=== PATIENT | female | born 1995 | race Caucasian/White ===

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

== ENCOUNTER 2017-07-16 10:02 | Emergency (ER) ==
[2017-07-16 10:14] VITALS: BP 145/80; TEMP 98.3; BMI 29.2
--- NOTE | 2017-07-16 10:31 | ED.PDOC ---
General ED Provider: Dr. SRAVANTHI CRUMP Chief Complaint: Abdominal Pain Stated Complaint: Pelvic and bilateral inguinal pain x 5 months. Eased off for past week but flared up again 3 days ago. 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 Has been worked up for each of 3 flare ups of pain (at [facility] and as OP), dx'd with PID (although repeated cultures were all negative ) and did not improve with treatment. Time Seen by Physician: 10:32 Mode of Arrival: Walk-In Information Source: Patient Exam Limitations: No limitations Primary Care Provider: KENNETH ALEGRIA Nursing and Triage Documentation Reviewed and Agree: Yes GI Complaint Exam - Abdominal Pain Complaint/Exam Onset: Gradual Duration: 5 months, worse x 3 days Symptoms Are: Still present Timing: Constant Initial Severity: Mild Current Severity: Moderate Location of Pain: RLQ, LLQ, Suprapubic Character: Reports: Aching, Throbbing, Cramping Aggravating: Reports: None Alleviating: Reports: None (never resolves but has eased off spontaneously, most recently 1 week ago.) [employer]ER History: Reports: PID (Dx'd with PID 3x in past 5 months, no response to tx and all cultures negative) : 1 Para: 1 Hx Total # of Abortions (Spontaneous & Elective): 0 Ectopic Risk Factors: Reports: None Ovarian Torsion Risk Factors: Reports: Reproductive age Surgical Obstruction Risk Factors: Reports: None Related Surgical History: Reports: None Patient Rh Status: Unknown Abdominal Findings: Present: None (suprapubic tenderness and bilateral inguinal tenderness. More tender on left than right.) Differential Diagnoses: Appendicitis, Gastroenteritis, Ovarian Cyst, PID Review of Systems - Review Of Systems Constitutional: Reports: No symptoms Respiratory: Reports: No symptoms Cardiac: Reports: No symptoms GI: Reports: Abdominal pain : Reports: Pain Musculoskeletal: Reports: No symptoms Skin: Reports: No symptoms Neurological: Reports: No symptoms All Other Systems: Reviewed and Negative Past Medical History - Past Medical History Previously Healthy: Yes Endocrine: Reports: None Cardiovascular: Reports: None Respiratory: Reports: None Hematological: Reports: None Gastrointestinal: Reports: None Genitourinary: Reports: Other (PMH of multiple positive urinalyses with negative cultures and negative urinalyses from cath'd urines.) Neuro/Psych: Reports: None Musculoskeletal: Reports: Back Pain Cancer: Reports: None Last Menstrual Period: this AM Other Pertinent Past Medical History: DRUG PROBLEMS IN THE PAST - Surgical History General Surgical History: Reports: None - Family History Family History: Reports: None - Social History Smoking Status: Current every day smoker, Heavy tobacco smoker Hx Substance Use: No Alcohol Screening: None Lives: With family - Immunizations Tetanus Shot up to Date: Yes Influenza Vaccine within 12 Months: No Pneumococcal Vaccine up to Date: No Physical Exam - Physical Exam Appearance: Well-appearing, Well-nourished Ill-appearing: None Pain Distress: Moderate Respiratory: Airway patent, Breath sounds clear, Breath sounds equal, Respirations nonlabored Cardiovascular: RRR, Pulses normal, No rub, No murmur GI/: Soft, No masses, Bowel sounds normal, No Organomegaly, Tender ( suprapubic and bilateral inguinal tenderness (R>L). Pelvic, bimanual exam: extremely tender to light touch of entire vagina, positive chandelier's sign. Speculum exam: cervix is friable plus bleeding from os. Routine culture obtained. Pt refused GC/chlamydia tests.) Musculoskeletal: Normal strength, ROM intact, No edema, No calf tenderness Skin: Warm, Dry, Normal color Neurological: Sensation intact, Motor intact, Reflexes intact, Cranial nerves intact, Alert, Oriented Psychiatric: Affect appropriate, Mood appropriate Critical Care Note - Critical Care Note Total Time (mins): 0 Course - Course Hematology/Chemistry: 07/16/17 10:42 07/16/17 10:42 Orders, Labs, Meds: Lab Review 07/16/17 07/16/17 07/16/17 10:42 10:42 10:42 WBC 6.46 RBC 5.43 H Hgb 11.9 L Hct 38.5 MCV 70.9 L MCH 21.9 L MCHC 30.9 L RDW Coeff of Angel 15.9 H Plt Count 336 Immature Gran % (Auto) 0.3 Neut % (Auto) 66.4 Lymph % (Auto) 21.7 [place] % (Auto) 8.4 Eos % (Auto) 2.6 Baso % (Auto) 0.6 Immature Gran # (Auto) 0.0 Neut # 4.3 Lymph # 1.4 [place] # 0.5 Eos # 0.2 Baso # 0.0 Sodium 138 Potassium 4.0 Chloride 107 Carbon Dioxide 26 Anion Gap 9.0 BUN 8 Creatinine 0.61 Estimated GFR (MDRD) 126.00 BUN/Creatinine Ratio 13.11 Glucose 92 Lactic Acid 6.1 Calcium 8.9 Total Bilirubin 0.46 L AST 13 ALT 13 Alkaline Phosphatase 71 Total Protein 7.0 Albumin 3.5 L Globulin 3.5 Albumin/Globulin Ratio 1.00 Amylase 51 Lipase 23 Urine Color Urine Clarity Urine pH Ur Specific [place] Urine Protein Urine Glucose (UA) Urine Ketones Urine Blood Urine Nitrite Urine Bilirubin Urine Urobilinogen Ur Leukocyte Esterase Urine Microscopic RBC Urine Microscopic WBC Ur Squamous Epith Cells Urine Bacteria Urine Test 07/16/17 07/16/17 11:40 11:40 WBC RBC Hgb Hct MCV MCH MCHC RDW Coeff of Angel Plt Count Immature Gran % (Auto) Neut % (Auto) Lymph % (Auto) [place] % (Auto) Eos % (Auto) Baso % (Auto) Immature Gran # (Auto) Neut # Lymph # [place] # Eos # Baso # Sodium Potassium Chloride Carbon Dioxide Anion Gap BUN Creatinine Estimated GFR (MDRD) BUN/Creatinine Ratio Glucose Lactic Acid Calcium Total Bilirubin AST ALT Alkaline Phosphatase Total Protein Albumin Globulin Albumin/Globulin Ratio Amylase Lipase Urine Color Red Urine Clarity Cloudy Urine pH 7.0 Ur Specific [place] 1.020 Urine Protein 2+ Urine Glucose (UA) Negative Urine Ketones Negative Urine Blood 3+ Urine Nitrite Negative Urine Bilirubin Negative Urine Urobilinogen 0.2 Ur Leukocyte Esterase 1+ Urine Microscopic RBC Tntc Urine Microscopic WBC Tntc Ur Squamous Epith Cells 5-10 Urine Bacteria 2+ Urine Test Negative Orders Category Date Time Status AMYLASE Stat LAB 07/16/17 10:42 Completed CBC W/ AUTO DIFF Stat LAB 07/16/17 10:42 Completed COMPREHENSIVE METABOLIC PANEL Stat LAB 07/16/17 10:42 Completed LACTIC ACID Stat LAB 07/16/17 10:42 Completed LIPASE Stat LAB 07/16/17 10:42 Completed TEST URINE [URINE ] Stat LAB 07/16/17 11:40 Completed URINALYSIS C & S IF INDICATED Stat LAB 07/16/17 11:40 Completed URINE CULTURE Routine LAB 07/16/17 12:02 Received Ketorolac Tromethamine [Toradol] MEDS 07/16/17 12:14 Discontinued 60 mg IM ONCE STA Medications Discontinued Medications Generic Name Dose Route Start Last Admin Trade Name Freq PRN Reason Stop Dose Admin Ketorolac Tromethamine 60 mg 07/16/17 12:14 Toradol IM 07/16/17 12:15 ONCE STA Vital Signs: Temp Pulse Resp BP Pulse Ox 07/16/17 10:04 98.3 F 96 H 20 145/80 H 100 Departure - Departure Time of Disposition: 12:59 Disposition: HOME SELF-CARE Discharge Problem: Pelvic inflammatory disease, acute, Pyuria Discharge Problem: (Ruled Out): Urinary tract infection Condition: Good Pt referred to PMD for follow-up: Yes (unless all symptoms resolve in next 3 days) Allergies/Adverse Reactions: Allergies codeine Adverse Reaction (Verified 07/16/17 10:14) Vomiting hydrocodone [From Lortab] Adverse Reaction (Verified 07/16/17 10:14) tramadol Adverse Reaction (Verified 07/16/17 10:14) Home Medications: Ambulatory Orders Lorazepam [Ativan] 0.5 mg PO BID 11/15/16 Doxycycline Hyclate 100 mg PO BID #20 capsule 07/16/17 Metronidazole [Flagyl] 250 mg PO TID #30 tablet 07/16/17 Ondansetron [Zofran Odt] 4 mg SL Q6HR PRN 07/16/17 Oxycodone-Acetaminophen 5-325 [Percocet 5-325] 1 tab PO Q4H #10 tablet 07/16/17 Disposition Discussed With: Patient
[2017-07-16 11:00] LABS: BASOPHILS % (AUTO) 0.6 % (0.0-3.0); EOSINOPHILS # (AUTO) 0.2 K/ul (0.0-0.7); EOSINOPHILS % (AUTO) 2.6 % (0.0-7.0); HEMATOCRIT 38.5 % (37.0-47.0); HEMOGLOBIN 11.9 g/dl (12.0-16.0); IMMATURE GRANULOCYTE % (AUTO) 0.3 % (0.0-5.0); LYMPHOCYTES # (AUTO) 1.4 K/uL (0.60-3.4); LYMPHOCYTES % (AUTO) 21.7 (10.0-50.0); MEAN CORPUSCULAR HEMOGLOBIN 21.9 pg (27.0-31.0); MEAN CORPUSCULAR HGB CONC 30.9 (31.8-35.4); MEAN CORPUSCULAR VOLUME 70.9 fl (81.0-99.0); MONOCYTES # (AUTO) 0.5 K/uL (0.4-2.0); MONOCYTES % (AUTO) 8.4 (0-10); NEUTROPHILS # (AUTO) 4.3 K/ul (2.0-6.9); NEUTROPHILS % (AUTO) 66.4; PLATELET COUNT 336 10^3/uL (140-440); RED BLOOD COUNT 5.43 10^6/ul (4.20-5.40); WHITE BLOOD COUNT 6.46 K/ul (4.6-10.2)
[2017-07-16 11:19] LABS: ALBUMIN 3.5 g/dL (3.7-5.6); BILIRUBIN,TOTAL 0.46 mg/dL (0.60-1.40); BUN/CREATININE RATIO 13.11; CALCIUM 8.9 mg/dL (8.2-10.2); CREATININE 0.61 mg/dL (0.60-1.30)
[2017-07-16 11:50] LABS: BILIRUBIN,URINE Negative (NEGATIVE); KETONES,URINE Negative (NEGATIVE); LEUKOCYTE ESTERASE ,URINE 1+ (NEGATIVE); NITRITE,URINE Negative (NEGATIVE); PROTEIN,URINE 2+ (NEGATIVE); URINE, BLOOD 3+ (NEGATIVE)
[2017-07-16 11:55] LABS: ADD URINE MICROSCOPIC YES
[2017-07-16 11:56] LABS: URINE PREGNANCY INTERNAL QC INTERNAL QC VALID
[2017-07-16 12:00] LABS: BACTERIA,URINE 2+ (NOT PRESENT)
[2017-07-16] MEDS ORDERED: TORADOL IM STA (12:14)
[2017-07-16] MEDS ORDERED: LIDOCAINE HCL 1% SDV SUBCUT STA (12:48)
[2017-07-16] MEDS ORDERED: ROCEPHIN IM STA (12:48)
[2017-07-20 19:10] LABS: GENITAL CULT RESULT 1 Yeast isolated. (.); GENITAL CULTURE Final report (.)
== END 2017-07-16 13:24 | disposition home or self-care (01) ==
LOC: ED 10:02
DX: N73.0 Acute parametritis and pelvic cellulitis (principal); N39.0 Urinary tract infection, site not specified; F17.210 Nicotine dependence, cigarettes, uncomplicated
CPT/HCPCS: 36415; 80053; 81001; 81025; 82150; 83605; 83690; 85025; 87070; 87086; 96372; 99282

== ENCOUNTER 2017-08-09 20:08 | Emergency (ER) ==
[2017-08-09 20:15] VITALS: BP 153/98; TEMP 98.5; BMI 28.3
--- NOTE | 2017-08-09 20:23 | ED.PDOC ---
General ED Provider: Dr. CHARISSE ALMANZA Chief Complaint: Abdominal Pain Stated Complaint: Patient states that she has a history of PID off and on and is at risk for Ectopic . States she has not had her period for two months and is spottiing. 4 hours ago she started having left lower quadrant pain and tenderness. She was worried of possible ectopic . Time Seen by Physician: 20:23 Mode of Arrival: Walk-In Information Source: Patient Exam Limitations: No limitations Primary Care Provider: KENNETH ALEGRIA Nursing and Triage Documentation Reviewed and Agree: Yes Complaint Exam - Complaint/Exam Patient Complains of: Reports: Vaginal discharge (spotting) Onset/Duration: two days Symptoms Are: Still present Timing: Constant Initial Severity: Moderate Current Severity: Moderate Location of Pain: Reports: Left Character: Reports: Constant pressure, Dull, Cramping Aggravating: Reports: Movement, Urination Associated Signs and Symptoms: Reports: Nausea, Vomiting, Abdominal Pain, Vaginal bleeding. Denies: Diaphoresis, Back pain, Fever, Hematuria, Dysuria, Constipation, Blood in stool, Rectal pain, Appetite change, Decreased urine output, Increased urine frequency, Increased thirst, Decreased activity, Lethargy, Bubble bath use, Vaginal discharge, Genital swelling, Genital blisters , Retained foreign body Related History: Reports: Similar episode, Prior STD Hx : 1 Para: 1 Ectopic Risk Factors: Reports: Hx of Salpingitis Ovarian Torsion Risk Factors: Reports: Ovarian cysts Surgical Obstruction Risk Factors: Reports: None RH Status: Unknown Related Surgical History: Reports: None Abdominal Findings: Absent: Rebound tenderness, Peritoneal signs, McBurney's Point tender, CVA Tenderness, Hernia, Inguinal swelling Differential Diagnoses: Ovarian Cyst, Ovarian Torsion, , Ectopic , Renal Colic, Ureteral Stone, UTI Review of Systems - Review Of Systems Constitutional: Reports: No symptoms Eyes: Reports: No symptoms Ears, Nose, Mouth, Throat: Reports: No symptoms Respiratory: Reports: No symptoms Cardiac: Reports: No symptoms GI: Reports: Abdominal pain, Nausea, Poor appetite, Vomiting : Reports: Dysuria, Other (spotting) Musculoskeletal: Reports: No symptoms Skin: Reports: No symptoms Neurological: Reports: No symptoms Endocrine: Reports: No symptoms Hematologic/Lymphatic: Reports: No symptoms All Other Systems: Reviewed and Negative Past Medical History - Past Medical History Previously Healthy: Yes Endocrine: Reports: None Cardiovascular: Reports: None Respiratory: Reports: None Hematological: Reports: None Gastrointestinal: Reports: None Genitourinary: Reports: Other (PMH of multiple positive urinalyses with negative cultures and negative urinalyses from cath'd urines.) Neuro/Psych: Reports: None Musculoskeletal: Reports: Back Pain Cancer: Reports: None Last Menstrual Period: UNKNOWN Other Pertinent Past Medical History: DRUG PROBLEMS IN THE PAST, PID - Surgical History General Surgical History: Reports: None - Family History Family History: Reports: None - Social History Smoking Status: Current every day smoker, Heavy tobacco smoker Hx Substance Use: No Alcohol Screening: None - Immunizations Tetanus Shot up to Date: No Influenza Vaccine within 12 Months: No Pneumococcal Vaccine up to Date: No Physical Exam - Physical Exam Appearance: Ill-appearing Ill-appearing: Mild Eyes: JOELLE, EOMI, Conjunctiva clear ENT: Ears normal, Nose normal, Oropharynx normal Respiratory: Airway patent, Breath sounds clear, Breath sounds equal, Respirations nonlabored Cardiovascular: RRR, Pulses normal, No rub, No murmur GI/: Soft, Tender Musculoskeletal: Normal strength, ROM intact, No edema, No calf tenderness Skin: Warm, Dry, Normal color Neurological: Sensation intact, Motor intact, Alert, Oriented Psychiatric: Anxious Interpretation - Radiology Interpretation Radiology Interpretation By: Radiologist Radiology Results: Negative Exam Interpreted: CT Scan (Abdomen and Pelvis ) Critical Care Note - Critical Care Note Total Time (mins): 0 Course - Course Hematology/Chemistry: 08/09/17 20:27 08/09/17 20:27 Orders, Labs, Meds: Lab Review 08/09/17 08/09/17 08/09/17 20:27 20:27 20:27 WBC 7.18 RBC 5.00 Hgb 11.2 L Hct 36.1 L MCV 72.2 L MCH 22.4 L MCHC 31.0 L RDW Coeff of Angel 16.6 H Plt Count 340 Immature Gran % (Auto) 0.1 Neut % (Auto) 55.9 Lymph % (Auto) 30.9 [place] % (Auto) 9.7 Eos % (Auto) 2.8 Baso % (Auto) 0.6 Immature Gran # (Auto) 0.0 Neut # 4.0 Lymph # 2.2 [place] # 0.7 Eos # 0.2 Baso # 0.0 Sodium 139 Potassium 4.4 Chloride 108 H Carbon Dioxide 23 Anion Gap 12.4 BUN 7 Creatinine 0.87 Estimated GFR (MDRD) 83.00 BUN/Creatinine Ratio 8.04 Glucose 93 Calcium 9.1 Total Bilirubin 0.18 AST 17 ALT 13 Alkaline Phosphatase 77 Total Protein 7.4 Albumin 3.6 Globulin 3.8 Albumin/Globulin Ratio 0.95 Serum , Qual Negative Urine Color Urine Clarity Urine pH Ur Specific [place] Urine Protein Urine Glucose (UA) Urine Ketones Urine Blood Urine Nitrite Urine Bilirubin Urine Urobilinogen Ur Leukocyte Esterase Urine Microscopic WBC Ur Squamous Epith Cells Urine Bacteria 08/09/17 20:36 WBC RBC Hgb Hct MCV MCH MCHC RDW Coeff of Angel Plt Count Immature Gran % (Auto) Neut % (Auto) Lymph % (Auto) [place] % (Auto) Eos % (Auto) Baso % (Auto) Immature Gran # (Auto) Neut # Lymph # [place] # Eos # Baso # Sodium Potassium Chloride Carbon Dioxide Anion Gap BUN Creatinine Estimated GFR (MDRD) BUN/Creatinine Ratio Glucose Calcium Total Bilirubin AST ALT Alkaline Phosphatase Total Protein Albumin Globulin Albumin/Globulin Ratio Serum , Qual Urine Color Yellow Urine Clarity Clear Urine pH 7.5 Ur Specific [place] 1.020 Urine Protein Trace Urine Glucose (UA) Negative Urine Ketones Negative Urine Blood Negative Urine Nitrite Negative Urine Bilirubin Negative Urine Urobilinogen 1.0 Ur Leukocyte Esterase Negative Urine Microscopic WBC 0-2 Ur Squamous Epith Cells 0-2 Urine Bacteria Trace Orders Category Date Time Status CBC W/ AUTO DIFF Stat LAB 08/09/17 20:27 Completed COMPREHENSIVE METABOLIC PANEL Stat LAB 08/09/17 20:27 Completed SERUM Stat LAB 08/09/17 20:27 Completed URINALYSIS C & S IF INDICATED Stat LAB 08/09/17 20:36 Completed Dicyclomine HCl [Bentyl] MEDS 08/09/17 21:40 Discontinued 20 mg PO ONCE STA Fluconazole [Diflucan] MEDS 08/09/17 21:40 Discontinued 150 mg PO ONCE STA Fluconazole [Diflucan] MEDS 08/09/17 21:46 Discontinued 200 mg .ROUTE .STK-MED ONE CT ABD/PEL WO RENAL STONE PROT Stat RADS 08/09/17 20:53 Completed Medications Discontinued Medications Generic Name Dose Route Start Last Admin Trade Name Freq PRN Reason Stop Dose Admin Dicyclomine HCl 20 mg 08/09/17 21:40 08/09/17 21:48 Bentyl PO 08/09/17 21:41 20 mg ONCE STA Administration Fluconazole 150 mg 08/09/17 21:40 08/09/17 21:50 Diflucan PO 08/09/17 21:41 Not Given ONCE STA Vital Signs: Temp Pulse Resp BP Pulse Ox 08/09/17 20:09 98.5 F 87 18 153/98 H 99 Departure - Departure Time of Disposition: 21:56 Disposition: HOME SELF-CARE Discharge Problem: Abdominal pain Instructions: Abdominal Pain (ED) Condition: Stable Pt referred to PMD for follow-up: Yes Additional Instructions: Push fluids Continue home medications Follow up with PCP in 3 days Take medications as prescribed for cramping. Prescriptions: Dicyclomine HCl [Bentyl] 10 mg PO TID PRN #14 capsule PRN Reason: Abdominal Pain Allergies/Adverse Reactions: Allergies codeine Adverse Reaction (Verified 08/09/17 20:15) Vomiting hydrocodone [From Lortab] Adverse Reaction (Verified 08/09/17 20:15) tramadol Adverse Reaction (Verified 08/09/17 20:15) Home Medications: Ambulatory Orders Lorazepam [Ativan] 0.5 mg PO BID PRN 11/15/16 Dicyclomine HCl [Bentyl] 10 mg PO TID PRN #14 capsule 08/09/17 Disposition Discussed With: Patient
[2017-08-09 20:30] LABS: BASOPHILS % (AUTO) 0.6 % (0.0-3.0); EOSINOPHILS # (AUTO) 0.2 K/ul (0.0-0.7); EOSINOPHILS % (AUTO) 2.8 % (0.0-7.0); HEMATOCRIT 36.1 % (37.0-47.0); HEMOGLOBIN 11.2 g/dl (12.0-16.0); IMMATURE GRANULOCYTE % (AUTO) 0.1 % (0.0-5.0); LYMPHOCYTES # (AUTO) 2.2 K/uL (0.60-3.4); LYMPHOCYTES % (AUTO) 30.9 (10.0-50.0); MEAN CORPUSCULAR HEMOGLOBIN 22.4 pg (27.0-31.0); MEAN CORPUSCULAR VOLUME 72.2 fl (81.0-99.0); MONOCYTES # (AUTO) 0.7 K/uL (0.4-2.0); MONOCYTES % (AUTO) 9.7 (0-10); NEUTROPHILS % (AUTO) 55.9; PLATELET COUNT 340 10^3/uL (140-440); WHITE BLOOD COUNT 7.18 K/ul (4.6-10.2)
[2017-08-09 20:42] LABS: BILIRUBIN,URINE Negative (NEGATIVE); KETONES,URINE Negative (NEGATIVE); LEUKOCYTE ESTERASE ,URINE Negative (NEGATIVE); NITRITE,URINE Negative (NEGATIVE); PH,URINE 7.5 (5-9); PROTEIN,URINE Trace (NEGATIVE); URINE, BLOOD Negative (NEGATIVE)
[2017-08-09 20:46] LABS: ADD URINE MICROSCOPIC YES; BACTERIA,URINE TRACE (NOT PRESENT)
[2017-08-09 20:46] LABS: SERUM PREGNANCY INTERNAL QC INTERNAL QC VALID
[2017-08-09 20:48] LABS: ALBUMIN 3.6 g/dL (3.4-5.0); ALBUMIN/GLOBULIN RATIO 0.95; ANION GAP 12.4; BILIRUBIN,TOTAL 0.18 mg/dL (0.00-1.20); BUN/CREATININE RATIO 8.04; CALCIUM 9.1 mg/dL (8.2-10.2); CREATININE 0.87 mg/dL (0.60-1.30); POTASSIUM 4.4 mmol/L (3.5-5.10); TOTAL PROTEIN 7.4 g/dL (6.4-8.2)
--- NOTE | 2017-08-09 21:29 | CT ---
EXAM: CT of the abdomen and pelvis without contrast. HISTORY: Left lower quadrant pain. PROCEDURE: Contiguous axial CT images of the abdomen and pelvis without contrast with coronal and sa gittal reformats. FINDINGS: The liver, gallbladder, pancreas, spleen, adrenal glands and kidneys are normal in appearan ce. No nephrolithiasis or hydronephrosis. The ureters are incompletely visualized. The abdominal a gabriella is normal in appearance. The visualized loops of bowel and appendix are normal in appearance. N o free fluid or free air in the abdomen or pelvis. The bladder is minimally filled with no abnormalit y identified. Uterus is retroflexed. The bones and soft tissues are unremarkable. Impression: Negative CT of the abdomen and pelvis as described.
[2017-08-09] MEDS ORDERED: DIFLUCAN PO STA (21:40)
[2017-08-09] MEDS ORDERED: BENTYL PO STA (21:40)
[2017-08-09] MEDS ORDERED: DIFLUCAN ONE (21:46)
== END 2017-08-09 22:00 | disposition home or self-care (01) ==
LOC: ED 20:08
DX: R10.32 Left lower quadrant pain (principal); R11.2 Nausea with vomiting, unspecified; R30.0 Dysuria; F17.210 Nicotine dependence, cigarettes, uncomplicated
CPT/HCPCS: 36415; 74176; 80053; 81001; 84703; 85025; 99283

== ENCOUNTER 2017-08-24 19:58 | Emergency (ER) ==
[2017-08-24 20:06] VITALS: BP 145/83; TEMP 97.9
--- NOTE | 2017-08-24 20:18 | ED.PDOC ---
General ED Provider: Dr. BLANCA MARTE Chief Complaint: Psychiatric Complaint Stated Complaint: Patient been confused since noon, seen PMD today,. anxious, crying. not suicidal, patient step mom with her. Time Seen by Physician: 20:16 Mode of Arrival: Walk-In Information Source: Patient Primary Care Provider: KENNETH ALEGRIA Nursing and Triage Documentation Reviewed and Agree: Yes Psychological Complaint Exam - Psychiatric Complaint/Exam Patient Complains Of: Present: Other (anxious.) Symptoms Are: Still present Timing: Intermittent Episodes Lasting: Hours Initial Severity: Moderate Current Severity: Moderate Character: Present: Fearful, Anxious, Frustrated Aggravating: Reports: Recent stress Associated Signs And Symptoms: Reports: Confused. Denies: Hostile, Hallucinating, Paranoid behavior, Sleep disturbance, Appetite change Related History: Reports: Recent stressors Completed Suicide Risk Factors: None Patient Accompanied By: Family (step mom) Patient In Custody Of Police: No Social Withdrawal Present: No Social Isolation Present: No Prior Suicide Attempt: No Injury From Prior Suicide Attempt: No Related Surgical History: Reports: None Patient Uncooperative For Exam: No Mood: Present: Anxious Appearance: Present: Clean Thought Process: Present: Logical Insight: Present: Good Memory: Intact Judgement: Normal Danger To Others: No Differential Diagnoses: Anxiety, Acute Psychosis, Other Review of Systems - Review Of Systems Constitutional: Reports: No symptoms Eyes: Reports: No symptoms Ears, Nose, Mouth, Throat: Reports: No symptoms Respiratory: Reports: No symptoms Cardiac: Reports: No symptoms GI: Reports: No symptoms : Reports: No symptoms Musculoskeletal: Reports: No symptoms Skin: Reports: No symptoms Neurological: Reports: Anxiety, Emotional problems Endocrine: Reports: No symptoms Hematologic/Lymphatic: Reports: No symptoms All Other Systems: Reviewed and Negative Past Medical History - Past Medical History Previously Healthy: Yes Endocrine: Reports: None Cardiovascular: Reports: None Respiratory: Reports: None Hematological: Reports: None Gastrointestinal: Reports: None Genitourinary: Reports: Other (PMH of multiple positive urinalyses with negative cultures and negative urinalyses from cath'd urines.) Neuro/Psych: Reports: None Musculoskeletal: Reports: Back Pain Cancer: Reports: None Last Menstrual Period: unknown Other Pertinent Past Medical History: DRUG PROBLEMS IN THE PAST, PID - Surgical History General Surgical History: Reports: None - Family History Family History: Reports: None - Social History Smoking Status: Current every day smoker, Heavy tobacco smoker Smoking Cessation Counseling Time: > 10 min Hx Substance Use: No Alcohol Screening: None - Immunizations Influenza Vaccine within 12 Months: No Pneumococcal Vaccine up to Date: No Physical Exam - Physical Exam Appearance: Ill-appearing, Obese Eyes: JOELLE, EOMI, Conjunctiva clear ENT: Ears normal, Nose normal, Oropharynx normal Respiratory: Airway patent, Breath sounds clear, Breath sounds equal, Respirations nonlabored Cardiovascular: RRR, Pulses normal, No rub, No murmur GI/: Soft, Nontender, No masses, Bowel sounds normal, No Organomegaly Musculoskeletal: Normal strength, ROM intact, No edema, No calf tenderness Skin: Warm, Dry, Normal color Neurological: Sensation intact, Motor intact, Reflexes intact, Cranial nerves intact, Alert, Oriented Psychiatric: Affect appropriate, Mood appropriate Critical Care Note - Critical Care Note Total Time (mins): 0 Course - Course Orders, Labs, Meds: Orders Category Date Time Status CBC W/ AUTO DIFF Stat LAB 08/24/17 20:15 Ordered COMPREHENSIVE METABOLIC PANEL Stat LAB 08/24/17 20:15 Ordered DRUG SCREEN, URINE, RAPID Stat LAB 08/24/17 20:15 Uncollected URINALYSIS C & S IF INDICATED Stat LAB 08/24/17 20:[address] HEAD W/O CONTRAST Stat RADS 08/24/17 20:15 Ordered Vital Signs: Temp Pulse Resp BP Pulse Ox 08/24/17 19:59 97.9 F 82 20 145/83 H 99 Departure - Departure Time of Disposition: 20:22 Disposition: HOME SELF-CARE Discharge Problem: Anxiety Instructions: Anxiety (ED) Condition: Good Pt referred to PMD for follow-up: Yes Additional Instructions: keep f/u with PMD Allergies/Adverse Reactions: Allergies codeine Adverse Reaction (Verified 08/24/17 20:07) Vomiting hydrocodone [From Lortab] Adverse Reaction (Verified 08/24/17 20:07) tramadol Adverse Reaction (Verified 08/24/17 20:07) Home Medications: Ambulatory Orders Lorazepam [Ativan] 0.5 mg PO BID PRN 11/15/16 Disposition Discussed With: Patient
[2017-08-24 20:41] LABS: BASOPHILS # (AUTO) 0.1 K/uL (0-0.2); BASOPHILS % (AUTO) 0.8 % (0.0-3.0); EOSINOPHILS # (AUTO) 0.2 K/ul (0.0-0.7); EOSINOPHILS % (AUTO) 2.2 % (0.0-7.0); HEMATOCRIT 38.7 % (37.0-47.0); HEMOGLOBIN 12.1 g/dl (12.0-16.0); IMMATURE GRANULOCYTE % (AUTO) 0.2 % (0.0-5.0); LYMPHOCYTES # (AUTO) 2.4 K/uL (0.60-3.4); LYMPHOCYTES % (AUTO) 26.8 (10.0-50.0); MEAN CORPUSCULAR HEMOGLOBIN 22.5 pg (27.0-31.0); MEAN CORPUSCULAR HGB CONC 31.3 (31.8-35.4); MEAN CORPUSCULAR VOLUME 72.1 fl (81.0-99.0); MONOCYTES # (AUTO) 0.9 K/uL (0.4-2.0); MONOCYTES % (AUTO) 10.7 (0-10); NEUTROPHILS # (AUTO) 5.2 K/ul (2.0-6.9); NEUTROPHILS % (AUTO) 59.3; PLATELET COUNT 373 10^3/uL (140-440); RED BLOOD COUNT 5.37 10^6/ul (4.20-5.40)
[2017-08-24 20:51] LABS: ACETAMINOPHEN < 3 ug/ml (10-30); SALICYLATE < 5.0 mg/dL (2.8-20.0)
--- NOTE | 2017-08-24 20:51 | CT ---
EXAM: CT scan brain without contrast HISTORY: Confusion COMPARISON: None. FINDINGS: Contiguous axial images were obtained from the skull base to the convexities without contr ast utilizing 5-mm collimation. Sagittal and coronal reconstructions were imaged and reviewed. The v entricles and CSF spaces are within normal limits. No acute intracranial findings. The visualized p aranasal sinuses and mastoid air cells are clear. The calvarium is intact. IMPRESSION: No acute intracranial findings
[2017-08-24 20:53] LABS: ALBUMIN 3.7 g/dL (3.4-5.0); ALBUMIN/GLOBULIN RATIO 0.95; ANION GAP 12.1; BILIRUBIN,TOTAL 0.25 mg/dL (0.00-1.20); BUN/CREATININE RATIO 21.91; CALCIUM 9.4 mg/dL (8.2-10.2); CREATININE 0.73 mg/dL (0.60-1.30); POTASSIUM 4.1 mmol/L (3.5-5.10); TOTAL PROTEIN 7.6 g/dL (6.4-8.2)
[2017-08-24 21:05] LABS: BILIRUBIN,URINE Negative (NEGATIVE); KETONES,URINE Negative (NEGATIVE); LEUKOCYTE ESTERASE ,URINE 2+ (NEGATIVE); NITRITE,URINE Negative (NEGATIVE); PROTEIN,URINE Negative (NEGATIVE); URINE, BLOOD Negative (NEGATIVE)
[2017-08-24 21:16] LABS: ADD URINE MICROSCOPIC YES
[2017-08-24 21:17] LABS: BACTERIA,URINE TRACE (NOT PRESENT)
[2017-08-24 21:18] LABS: COCAIN SCREEN,URINE NEGATIVE (NEGATIVE)
== END 2017-08-24 22:17 | disposition home or self-care (01) ==
LOC: ED 19:58
DX: F41.9 Anxiety disorder, unspecified (principal); F17.210 Nicotine dependence, cigarettes, uncomplicated
CPT/HCPCS: 36415; 80053; 80306; 80307; 81001; 85025; 87086; 99283

== ENCOUNTER 2017-08-30 14:28 | Emergency (ER) ==
[2017-08-30 14:36] VITALS: BP 118/81; TEMP 97.8; BMI 29.2
[2017-08-30] MEDS ORDERED: PHENERGAN 25 MG/ML VIAL IM STA (15:00)
--- NOTE | 2017-08-30 15:00 | ED.PDOC ---
General ED Provider: Dr. SAMANTA ROBERTS JR Chief Complaint: Stated Complaint: 4 weeksEGA. 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 today with child[End ]states last emesis contained blood 97.8 69 20 98% 118/81 Time Seen by Physician: 15:00 Mode of Arrival: Walk-In Information Source: Patient Exam Limitations: No limitations Primary Care Provider: KENNETH ALEGRIA Nursing and Triage Documentation Reviewed and Agree: No Review of Systems - Review Of Systems Constitutional: Reports: Malaise Eyes: Reports: No symptoms Ears, Nose, Mouth, Throat: Reports: No symptoms Respiratory: Reports: No symptoms Cardiac: Reports: No symptoms GI: Reports: Nausea, Vomiting : Reports: Discharge Musculoskeletal: Reports: No symptoms Skin: Reports: No symptoms Neurological: Reports: No symptoms, Other Endocrine: Reports: No symptoms Hematologic/Lymphatic: Reports: No symptoms All Other Systems: Other Past Medical History - Past Medical History Previously Healthy: Yes Endocrine: Reports: None Cardiovascular: Reports: None Respiratory: Reports: None Hematological: Reports: None Gastrointestinal: Reports: None Genitourinary: Reports: Unknown (chronic cervicitis states negative cultures no benefit antibiotics), Other (PMH of multiple positive urinalyses with negative cultures and negative urinalyses from cath'd urines.) Neuro/Psych: Reports: None, Bipolar Disorder, PTSD, Other (AFFECTIVE ADD MANIC DEPRESSION) Musculoskeletal: Reports: Back Pain Cancer: Reports: None Last Menstrual Period: unknown Other Pertinent Past Medical History: DRUG PROBLEMS IN THE PAST, PID - Surgical History General Surgical History: Reports: Other (vag surgery for hematoma 30 min after delivery, 10/03/16) - Family History Family History: Reports: None - Social History Smoking Status: Former smoker, Heavy tobacco smoker Hx Substance Use: No Alcohol Screening: None - Immunizations Influenza Vaccine within 12 Months: No Pneumococcal Vaccine up to Date: No Physical Exam - Physical Exam Appearance: Well-appearing Pain Distress: Mild Eyes: JOELLE, EOMI, Conjunctiva clear ENT: Ears normal, Nose normal, Oropharynx normal Neck: Supple Respiratory: Airway patent, Breath sounds clear, Breath sounds equal, Respirations nonlabored, Rhonchi Cardiovascular: RRR, Pulses normal, No rub, No murmur GI/: Soft, Nontender, No masses, Bowel sounds normal, No Organomegaly Musculoskeletal: Normal strength, ROM intact, No edema, No calf tenderness Skin: Warm, Dry, Normal color Neurological: Sensation intact, Motor intact, Reflexes intact, Cranial nerves intact, Alert, Oriented Psychiatric: Affect appropriate, Mood appropriate Critical Care Note - Critical Care Note Total Time (mins): 0 Course - Course Orders, Labs, Meds: Orders Category Date Time Status Promethazine HCl [Phenergan 25 mg/ml Vial] MEDS 08/30/17 15:00 Discontinued 25 mg IM ONCE STA Medications Discontinued Medications Generic Name Dose Route Start Last Admin Trade Name Freq PRN Reason Stop Dose Admin Promethazine HCl 25 mg 08/30/17 15:00 08/30/17 15:24 Phenergan 25 Mg/Ml Vial IM 08/30/17 15:01 25 mg ONCE STA Administration Vital Signs: Temp Pulse Resp BP Pulse Ox 08/30/17 14:29 97.8 F 69 20 118/81 98 Departure - Departure Time of Disposition: 15:08 Disposition: HOME SELF-CARE Discharge Problem: Vomiting as reason for care in Qualifiers: Weeks of gestation: less than 8 weeks Qualified Code(s): Z3A.01 - Less than 8 weeks gestation of Instructions: Nausea and Vomiting in (ED), (ED), Diet (GEN) Condition: Good Pt referred to PMD for follow-up: Yes Additional Instructions: discuss emesis with PMD return if fever over 102 follow up with OBGYN call today for follow up may try diclegis if OK with OB for nausea may use phenergan if OK with OB for nausea clear liquids until keeping fluids down clear liquids for 4 hours after vomiting Prescriptions: Doxylamine Succinate/Vit B6 [Rafal Mancia 10-10 mg Tablet] 2 each PO BEDTIME PRN #8 tablet.dr PRN Reason: Nausea / Vomiting Promethazine HCl [Phenergan Supp] 1 - 2 supp RC QID PRN #12 supp PRN Reason: Nausea / Vomiting Allergies/Adverse Reactions: Allergies codeine Adverse Reaction (Verified 08/30/17 14:34) Vomiting hydrocodone [From Lortab] Adverse Reaction (Verified 08/30/17 14:34) tramadol Adverse Reaction (Verified 08/30/17 14:34) Home Medications: Ambulatory Orders Doxylamine Succinate/Vit B6 [Rafal Mancia 10-10 mg Tablet] 2 each PO BEDTIME PRN #8 tablet. 08/30/17 Promethazine HCl [Phenergan Supp] 1 - 2 supp RC QID PRN #12 supp 08/30/17
== END 2017-08-30 16:07 | disposition home or self-care (01) ==
LOC: ED 14:28
DX: R11.10 Vomiting, unspecified (principal); Z3A.01 Less than 8 weeks gestation of pregnancy
CPT/HCPCS: 96372; 99282

== ENCOUNTER 2017-09-01 11:30 | Emergency (ER) ==
[2017-09-01 11:32] VITALS: BMI 29.2
[2017-09-01 11:35] VITALS: BP 123/78; TEMP 99.2
[2017-09-01] MEDS ORDERED: SODIUM CHLORIDE 1,000 ML IV STA ×2 (11:43→13:45)
--- NOTE | 2017-09-01 11:45 | ED.PDOC ---
General ED Provider: Dr. CHARISSE ALMANZA Chief Complaint: Stated Complaint: Patient comes to the ER with exposure to with viral gi symtoms. Started having vomiting and Diarrhea since yesterday. she is and has been following up with Dr Webb for serial HGC, yesterday the HCG quat was 12 Time Seen by Physician: 11:50 Mode of Arrival: Walk-In Information Source: Patient Exam Limitations: No limitations Primary Care Provider: KENNETH ALEGRIA Nursing and Triage Documentation Reviewed and Agree: Yes GI Complaint Exam - Vomiting/Diarrhea Complaint/Exam Onset/Duration: 2 days Symptoms Are: Still present Initial Severity: Moderate Current Severity: Moderate Character of Vomiting: Reports: Non-bilious Character of Diarrhea: Reports: Watery Aggravating: Reports: None Alleviating: Reports: None Associated Signs and Symptoms: Denies: Dizziness, Light-headedness, Melena, Hematemesis, Fever, Abdominal pain, Cramping Last Oral Intake: just prior to arriva : 3 Para: 1 Hx Total # of Abortions (Spontaneous & Elective): 0 Recent Positive Test: Yes Use of Oral Contraceptives: No Use of Depoprovera: No Non-GI Risk Factors: Reports: None Surgical Obstruction Risk Factors: Reports: None Related Surgical History: Reports: None Abdominal Findings: Present: None Kussmaul Respirations Present: No Differential Diagnoses: Gastritis, Viral Gastroenteritis Review of Systems - Review Of Systems Constitutional: Reports: No symptoms Eyes: Reports: No symptoms Ears, Nose, Mouth, Throat: Reports: No symptoms Respiratory: Reports: No symptoms Cardiac: Reports: No symptoms GI: Reports: Diarrhea, Nausea, Poor appetite, Vomiting : Reports: No symptoms Musculoskeletal: Reports: No symptoms Skin: Reports: No symptoms Neurological: Reports: Anxiety Endocrine: Reports: No symptoms Hematologic/Lymphatic: Reports: No symptoms All Other Systems: Reviewed and Negative Past Medical History - Past Medical History Previously Healthy: Yes Endocrine: Reports: None Cardiovascular: Reports: None Respiratory: Reports: None Hematological: Reports: None Gastrointestinal: Reports: None Genitourinary: Reports: Unknown (chronic cervicitis states negative cultures no benefit antibiotics), Other (PMH of multiple positive urinalyses with negative cultures and negative urinalyses from cath'd urines.) Neuro/Psych: Reports: None, Bipolar Disorder, PTSD, Other (AFFECTIVE ADD MANIC DEPRESSION) Musculoskeletal: Reports: Back Pain Cancer: Reports: None Last Menstrual Period: unknown Other Pertinent Past Medical History: DRUG PROBLEMS IN THE PAST, PID - Surgical History General Surgical History: Reports: Other (vag surgery for hematoma 30 min after delivery, 10/03/16) - Family History Family History: Reports: None - Social History Smoking Status: Former smoker, Heavy tobacco smoker Hx Substance Use: No Alcohol Screening: None - Immunizations Influenza Vaccine within 12 Months: No Pneumococcal Vaccine up to Date: No Physical Exam - Physical Exam Appearance: Ill-appearing, Well-nourished Ill-appearing: Mild Eyes: JOELLE, EOMI, Conjunctiva clear Neck: Supple Respiratory: Airway patent, Breath sounds clear, Breath sounds equal, Respirations nonlabored Cardiovascular: RRR, Pulses normal, No rub, No murmur GI/: Soft, Nontender, Bowel sounds normal Musculoskeletal: Normal strength, ROM intact, No edema, No calf tenderness Skin: Warm, Dry, Normal color Neurological: Sensation intact, Motor intact, Reflexes intact, Cranial nerves intact, Alert, Oriented Psychiatric: Anxious Critical Care Note - Critical Care Note Total Time (mins): 0 Course - Course Hematology/Chemistry: 09/01/17 12:00 09/01/17 12:00 Orders, Labs, Meds: Lab Review 09/01/17 09/01/17 09/01/17 12:00 12:00 12:00 WBC 7.86 RBC 5.63 H Hgb 12.6 Hct 40.4 MCV 71.8 L MCH 22.4 L MCHC 31.2 L RDW Coeff of Angel 17.4 H Plt Count 399 Immature Gran % (Auto) 0.4 Neut % (Auto) 70.3 Lymph % (Auto) 15.4 [place] % (Auto) 11.5 H Eos % (Auto) 1.9 Baso % (Auto) 0.5 Immature Gran # (Auto) 0.0 Neut # 5.5 Lymph # 1.2 Wetzel # 0.9 Eos # 0.2 Baso # 0.0 Sodium 138 Potassium 4.1 Chloride 107 Carbon Dioxide 22 Anion Gap 13.1 BUN 7 Creatinine 0.66 Estimated GFR (MDRD) 114.00 BUN/Creatinine Ratio 10.60 Glucose 85 Calcium 9.4 Total Bilirubin 0.59 AST 19 ALT 20 Alkaline Phosphatase 88 Total Protein 7.8 Albumin 4.0 Globulin 3.8 Albumin/Globulin Ratio 1.05 Amylase 62 Lipase 23 HCG, Quant 9.62 Urine Color Urine Clarity Urine pH Ur Specific [place] Urine Protein Urine Glucose (UA) Urine Ketones Urine Blood Urine Nitrite Urine Bilirubin Urine Urobilinogen Ur Leukocyte Esterase Urine Microscopic RBC Urine Microscopic WBC Ur Squamous Epith Cells Ur Renal Epithelial Cell Urine Bacteria 09/01/17 13:55 WBC RBC Hgb Hct MCV MCH MCHC RDW Coeff of Angel Plt Count Immature Gran % (Auto) Neut % (Auto) Lymph % (Auto) [place] % (Auto) Eos % (Auto) Baso % (Auto) Immature Gran # (Auto) Neut # Lymph # [place] # Eos # Baso # Sodium Potassium Chloride Carbon Dioxide Anion Gap BUN Creatinine Estimated GFR (MDRD) BUN/Creatinine Ratio Glucose Calcium Total Bilirubin AST ALT Alkaline Phosphatase Total Protein Albumin Globulin Albumin/Globulin Ratio Amylase Lipase HCG, Quant Urine Color Light Urine Clarity Clear Urine pH 6.0 Ur Specific [place] <=1.005 Urine Protein Negative Urine Glucose (UA) Negative Urine Ketones Negative Urine Blood Trace-intact Urine Nitrite Negative Urine Bilirubin Negative Urine Urobilinogen 0.2 Ur Leukocyte Esterase 1+ Urine Microscopic RBC 0-2 Urine Microscopic WBC 5-10 Ur Squamous Epith Cells 2-5 Ur Renal Epithelial Cell 0-2 Urine Bacteria Trace Orders Category Date Time Status AMYLASE Stat LAB 09/01/17 12:00 Completed CBC W/ AUTO DIFF Stat LAB 09/01/17 12:00 Completed COMPREHENSIVE METABOLIC PANEL Stat LAB 09/01/17 12:00 Completed HCG,QUANTITATIVE Stat LAB 09/01/17 12:00 Completed LIPASE Stat LAB 09/01/17 12:00 Completed UA [URINALYSIS C & S IF INDICATED] Stat LAB 09/01/17 13:55 Completed URINE CULTURE Stat LAB 09/01/17 14:25 Received Promethazine HCl [Phenergan 25 mg/ml Vial] MEDS 09/01/17 12:20 Discontinued 25 mg IM ONCE STA Promethazine HCl [Phenergan 25 mg/ml Vial] 25 mg MEDS 09/01/17 12:38 Discontinued 0.9 % Sodium Chloride [Sodium Chloride] 50 ml IV ONCE Sodium Chloride 0.9% [Sodium Chloride] 1,000 ml MEDS 09/01/17 11:43 Discontinued IV BOLUS Sodium Chloride 0.9% [Sodium Chloride] 1,000 ml MEDS 09/01/17 13:45 Discontinued IV BOLUS Medications Discontinued Medications Generic Name Dose Route Start Last Admin Trade Name Freq PRN Reason Stop Dose Admin Sodium Chloride 1,000 mls @ 1,000 mls/hr 09/01/17 11:43 09/01/17 12:11 Sodium Chloride IV 09/01/17 12:42 1,000 mls/hr BOLUS STA Administration Promethazine HCl 25 mg/ Sodium 51 mls @ 75 mls/hr 09/01/17 12:38 09/01/17 12: 43 Chloride IV 09/01/17 13:18 75 mls/hr ONCE STA Administration Sodium Chloride 1,000 mls @ 1,000 mls/hr 09/01/17 13:45 09/01/17 14:02 Sodium Chloride IV 09/01/17 14:44 1,000 mls/hr BOLUS STA Administration Promethazine HCl 25 mg 09/01/17 12:20 09/01/17 12:33 Phenergan 25 Mg/Ml Vial IM 09/01/17 12:21 Not Given ONCE STA Vital Signs: Temp Pulse Resp BP Pulse Ox 09/01/17 11:32 99.2 F 88 20 123/78 98 Departure - Departure Time of Disposition: 15:09 Disposition: HOME SELF-CARE Discharge Problem: Gastroenteritis and colitis, viral Qualifiers: Weeks of gestation: less than 8 weeks Qualified Code(s): Z3A.01 - Less than 8 weeks gestation of Instructions: (ED), Gastroenteritis (ED) Condition: Stable Pt referred to PMD for follow-up: Yes Additional Instructions: Keep Apt with OBGYN Push fluids Allergies/Adverse Reactions: Allergies codeine Adverse Reaction (Verified 09/01/17 11:38) Vomiting hydrocodone [From Lortab] Adverse Reaction (Verified 09/01/17 11:38) tramadol Adverse Reaction (Verified 09/01/17 11:38) Home Medications: Ambulatory Orders 1 [No Reported Medications] 09/01/17 Disposition Discussed With: Patient, Family
[2017-09-01 12:05] LABS: BASOPHILS % (AUTO) 0.5 % (0.0-3.0); EOSINOPHILS # (AUTO) 0.2 K/ul (0.0-0.7); EOSINOPHILS % (AUTO) 1.9 % (0.0-7.0); HEMATOCRIT 40.4 % (37.0-47.0); HEMOGLOBIN 12.6 g/dl (12.0-16.0); IMMATURE GRANULOCYTE % (AUTO) 0.4 % (0.0-5.0); LYMPHOCYTES # (AUTO) 1.2 K/uL (0.60-3.4); LYMPHOCYTES % (AUTO) 15.4 (10.0-50.0); MEAN CORPUSCULAR HEMOGLOBIN 22.4 pg (27.0-31.0); MEAN CORPUSCULAR HGB CONC 31.2 (31.8-35.4); MEAN CORPUSCULAR VOLUME 71.8 fl (81.0-99.0); MONOCYTES # (AUTO) 0.9 K/uL (0.4-2.0); MONOCYTES % (AUTO) 11.5 (0-10); NEUTROPHILS # (AUTO) 5.5 K/ul (2.0-6.9); NEUTROPHILS % (AUTO) 70.3; PLATELET COUNT 399 10^3/uL (140-440); RED BLOOD COUNT 5.63 10^6/ul (4.20-5.40); WHITE BLOOD COUNT 7.86 K/ul (4.6-10.2)
[2017-09-01] MEDS ORDERED: PHENERGAN 25 MG/ML VIAL IM STA (12:20)
[2017-09-01 12:25] LABS: ALBUMIN/GLOBULIN RATIO 1.05; ANION GAP 13.1; BILIRUBIN,TOTAL 0.59 mg/dL (0.00-1.20); BUN/CREATININE RATIO 10.6; CALCIUM 9.4 mg/dL (8.2-10.2); CREATININE 0.66 mg/dL (0.60-1.30); POTASSIUM 4.1 mmol/L (3.5-5.10); TOTAL PROTEIN 7.8 g/dL (6.4-8.2)
[2017-09-01] MEDS ORDERED: PHENERGAN 25 MG/ML VIAL 25 MG in SODIUM CHLORIDE 50 ML IV STA (12:38)
[2017-09-01 14:22] LABS: BILIRUBIN,URINE Negative (NEGATIVE); KETONES,URINE Negative (NEGATIVE); LEUKOCYTE ESTERASE ,URINE 1+ (NEGATIVE); NITRITE,URINE Negative (NEGATIVE); PROTEIN,URINE Negative (NEGATIVE); URINE, BLOOD Trace-intact (NEGATIVE)
[2017-09-01 14:23] LABS: ADD URINE MICROSCOPIC YES
[2017-09-01 14:26] LABS: BACTERIA,URINE TRACE (NOT PRESENT)
== END 2017-09-01 15:33 | disposition home or self-care (01) ==
LOC: ED 11:30
DX: A08.4 Viral intestinal infection, unspecified (principal); Z34.01 Encounter for supervision of normal first pregnancy, first trimester
CPT/HCPCS: 36415; 80053; 81001; 82150; 83690; 84702; 85025; 87086; 96361; 96365; 99283

== ENCOUNTER 2017-10-06 19:40 | Emergency (ER) ==
[2017-10-06] MEDS ORDERED: LACTATED RINGERS 1,000 ML IV STA (19:43)
[2017-10-06 19:53] VITALS: BP 142/79; TEMP 97.7; BMI 29.9
[2017-10-06] MEDS ORDERED: TORADOL IM STA (19:53)
[2017-10-06] MEDS ORDERED: PHENERGAN 25 MG/ML VIAL IM STA (19:53)
--- NOTE | 2017-10-06 20:10 | ED.PDOC ---
General ED Provider: Dr. TABATHA BRAVO-ER Chief Complaint: Non-specific Complaint Stated Complaint: i went to [facility] er yesterday and had bloodwork and u/s-- told she was having miscarriage--had more bleeding and pelvic cramping tonight-- "i know you guys cant do anything"=--"this is my 3rd miscarriage" Time Seen by Physician: 19:45 Mode of Arrival: Walk-In Information Source: Patient Exam Limitations: No limitations Primary Care Provider: KENNETH ALEGRIA Nursing and Triage Documentation Reviewed and Agree: Yes Reviewed sepsis parameters & appropriate labs ordered?: Yes System Inflammatory Response Syndrome: Not Applicable Sepsis Protocol: For patient's 13 years and over: Temp is 96.8 and below OR 101 and greater Pulse >90 BPM Resp >20/minute Acutely Altered Mental Status Are patient's symptoms suggestive of a new infection, such as: -Pneumonia -Skin, Soft Tissue -Endocarditis -UTI -Bone, Joint Infection -Implantable Device -Acute Abdominal Infection -Wound Infection -Meningitis -Blood Stream Catheter Infection -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 Denies: Dizziness, Lightheadedness, Pale, UTI symptoms, Abdominal pain, Generalized pain Related History: Reports: Similar episode, Recent + test Review of Systems - Review Of Systems Constitutional: Reports: No symptoms Eyes: Reports: No symptoms Ears, Nose, Mouth, Throat: Reports: No symptoms Respiratory: Reports: No symptoms Cardiac: Reports: No symptoms GI: Reports: No symptoms : Reports: No symptoms Musculoskeletal: Reports: No symptoms Skin: Reports: No symptoms Neurological: Reports: No symptoms Endocrine: Reports: No symptoms Hematologic/Lymphatic: Reports: No symptoms All Other Systems: Reviewed and Negative Past Medical History - Past Medical History Previously Healthy: Yes Endocrine: Reports: None Cardiovascular: Reports: None Respiratory: Reports: None Hematological: Reports: None Gastrointestinal: Reports: None Genitourinary: Reports: Unknown (chronic cervicitis states negative cultures no benefit antibiotics), Other (PMH of multiple positive urinalyses with negative cultures and negative urinalyses from cath'd urines.) Neuro/Psych: Reports: None, Bipolar Disorder, PTSD, Other (AFFECTIVE ADD MANIC DEPRESSION) Musculoskeletal: Reports: Back Pain Cancer: Reports: None Last Menstrual Period: may, unsure of date Other Pertinent Past Medical History: DRUG PROBLEMS IN THE PAST, PID - Surgical History General Surgical History: Reports: Other (vag surgery for hematoma 30 min after delivery, 10/03/16) - Family History Family History: Reports: None - Social History Smoking Status: Former smoker, Heavy tobacco smoker Hx Substance Use: No Alcohol Screening: None Lives: With family - Immunizations Tetanus Shot up to Date: Yes Influenza Vaccine within 12 Months: No Pneumococcal Vaccine up to Date: No Physical Exam - Physical Exam Appearance: Well-appearing Pain Distress: Mild Eyes: JOELLE, EOMI, Conjunctiva clear ENT: Ears normal, Nose normal, Oropharynx normal Neck: Supple Respiratory: Airway patent, Breath sounds clear, Breath sounds equal, Respirations nonlabored Cardiovascular: RRR, Pulses normal, No rub, No murmur GI/: Soft, Nontender, No masses, Bowel sounds normal, No Organomegaly Musculoskeletal: Normal strength, ROM intact, No edema, No calf tenderness Skin: Warm, Dry, Normal color Neurological: Sensation intact, Motor intact, Reflexes intact, Cranial nerves intact, Alert, Oriented Psychiatric: Affect appropriate, Mood appropriate, Anxious Re-Evaluation - Re-Evaluation Time of Re-Evaluation: 21:26 Status: Improved (no pain or bleeding) Vital Signs Stable: Yes Pain Level: 0 Appearance: NAD Lungs: Clear Skin: Warm and Dry Neuro: Alert and Oriented X3 CV: RRR Critical Care Note - Critical Care Note Total Time (mins): 0 Course - Course Orders, Labs, Meds: Orders Category Date Time Status ED IV/MEDIPORT/POWERPORT .ONCE EMERGENCY 10/06/17 19:43 Inactive Ketorolac Tromethamine [Toradol] MEDS 10/06/17 19:53 Discontinued 60 mg IM ONCE STA Morphine Sulfate [Morphine 2 mg/ml Syringe] MEDS 10/06/17 20:43 Discontinued 4 mg IM ONCE STA Promethazine HCl [Phenergan 25 mg/ml Vial] MEDS 10/06/17 19:53 Discontinued 25 mg IM ONCE STA Medications Discontinued Medications Generic Name Dose Route Start Last Admin Trade Name Freq PRN Reason Stop Dose Admin Ketorolac Tromethamine 60 mg 10/06/17 19:53 10/06/17 20:11 Toradol IM 12/23/17 19:54 60 mg ONCE STA Administration Morphine Sulfate 4 mg 10/06/17 20:43 10/06/17 20:57 Morphine 2 Mg/Ml Syringe IM 10/06/17 20:44 4 mg ONCE STA Administration Promethazine HCl 25 mg 10/06/17 19:53 10/06/17 20:11 Phenergan 25 Mg/Ml Vial IM 10/06/17 19:54 25 mg ONCE STA Administration Vital Signs: Temp Pulse Resp BP Pulse Ox 10/06/17 19:41 97.7 F 76 20 142/79 H 100 Departure - Departure Time of Disposition: 21:27 Disposition: HOME SELF-CARE Discharge Problem: Miscarriage, threatened, early Instructions: Threatened Miscarriage (ED) Condition: Good Pt referred to PMD for follow-up: Yes Additional Instructions: keep appt with hob machine operator on the 3rd---if pain or bleeding is uncontrolled--call 911 Allergies/Adverse Reactions: Allergies codeine Adverse Reaction (Verified 10/06/17 20:12) Vomiting hydrocodone [From Lortab] Adverse Reaction (Verified 10/06/17 20:12) tramadol Adverse Reaction (Verified 10/06/17 20:12) Home Medications: Ambulatory Orders 1 [No Reported Medications] 09/01/17 Disposition Discussed With: Patient
[2017-10-06] MEDS ORDERED: MORPHINE 2 MG/ML SYRINGE IM STA (20:43)
== END 2017-10-06 21:38 | disposition home or self-care (01) ==
LOC: ED 19:40
DX: O20.0 Threatened abortion (principal); Z37.9 Outcome of delivery, unspecified
CPT/HCPCS: 96372; 99283

== ENCOUNTER 2017-11-03 20:47 | Outpatient (CLI) | END 2017-11-03 20:48 | disposition left against medical advice (07) | LOC: AMBL 20:47 | PROVIDERS: ATTEND Internal Medicine Geriatric Medicine | DX: F41.0 Panic disorder [episodic paroxysmal anxiety] (principal); R06.4 Hyperventilation ==

== ENCOUNTER 2017-11-08 08:24 | Emergency (ER) ==
[2017-11-08 08:36] VITALS: BP 128/72; TEMP 98.8; BMI 29.7
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
== END 2017-11-08 11:56 | disposition home or self-care (01) ==
LOC: ED 08:24
DX: O23.41 Unspecified infection of urinary tract in pregnancy, first trimester (principal); R10.30 Lower abdominal pain, unspecified
CPT/HCPCS: 36415; 81001; 84702; 87086; 99283

== ENCOUNTER 2017-12-05 09:52 | Emergency (ER) ==
[2017-12-05 09:56] VITALS: BP 121/76; TEMP 98.2; BMI 29.0
--- NOTE | 2017-12-05 11:27 | ED.PDOC ---
General ED Provider: Dr. LUCY RUELAS Chief Complaint: Nausea/Vomiting Stated Complaint: N/V/ X8 WEEKS Time Seen by Physician: 10:00 (PRESENT WITH 3 EPISODES OF VOMITING TODAY ) Mode of Arrival: Walk-In Information Source: Patient Exam Limitations: No limitations (NURSE PRESENT DURING MY ENTIRE INTERACTION WITH THE PT(TAY)) Primary Care Provider: KENNETH ALEGRIA Nursing and Triage Documentation Reviewed and Agree: Yes Reviewed sepsis parameters & appropriate labs ordered?: Yes System Inflammatory Response Syndrome: Not Applicable Sepsis Protocol: For patient's 13 years and over: Temp is 96.8 and below OR 101 and greater Pulse >90 BPM Resp >20/minute Acutely Altered Mental Status Are patient's symptoms suggestive of a new infection, such as: -Pneumonia -Skin, Soft Tissue -Endocarditis -UTI -Bone, Joint Infection -Implantable Device -Acute Abdominal Infection -Wound Infection -Meningitis -Blood Stream Catheter Infection -Unknown System Inflammatory Response Syndrome: Not Applicable GI Complaint Exam - Vomiting/Diarrhea Complaint/Exam Onset/Duration: THIS MORNING Symptoms Are: Resolved Episodes of Vomiting over last 24 Hours: 4 Episodes of Diarrhea Over Last 24 Hours: 0 Initial Severity: Mild Current Severity: None Character of Vomiting: Reports: Non-bilious Aggravating: Reports: None Alleviating: Reports: None Associated Signs and Symptoms: Denies: Dizziness, Light-headedness, Melena, Hematemesis, Fever, Abdominal pain, Cramping Related History: Reports: Similar episode Recent Positive Test: No Use of Oral Contraceptives: No Use of Depoprovera: No Compliant With Contraceptive Use: No Non-GI Risk Factors: Reports: None Surgical Obstruction Risk Factors: Reports: None Related Surgical History: Reports: None Differential Diagnoses: Review of Systems - Review Of Systems Constitutional: Reports: No symptoms Eyes: Reports: No symptoms Ears, Nose, Mouth, Throat: Reports: No symptoms Respiratory: Reports: No symptoms Cardiac: Reports: No symptoms GI: Reports: Nausea, Vomiting : Reports: No symptoms Musculoskeletal: Reports: No symptoms Skin: Reports: No symptoms Neurological: Reports: No symptoms Endocrine: Reports: No symptoms Hematologic/Lymphatic: Reports: No symptoms All Other Systems: Reviewed and Negative Past Medical History - Past Medical History Previously Healthy: Yes Endocrine: Reports: None Cardiovascular: Reports: None Respiratory: Reports: None Hematological: Reports: None Gastrointestinal: Reports: None Genitourinary: Reports: Unknown (chronic cervicitis states negative cultures no benefit antibiotics), Other (PMH of multiple positive urinalyses with negative cultures and negative urinalyses from cath'd urines.) Neuro/Psych: Reports: None, Bipolar Disorder, PTSD, Other (AFFECTIVE ADD MANIC DEPRESSION) Musculoskeletal: Reports: Back Pain Cancer: Reports: None Last Menstrual Period: 10 weeks ago Other Pertinent Past Medical History: DRUG PROBLEMS IN THE PAST, PID - Surgical History General Surgical History: Reports: None, Other (vag surgery for hematoma 30 min after delivery, 10/03/16) - Family History Family History: Reports: None - Social History Smoking Status: Former smoker Hx Substance Use: No Alcohol Screening: None - Immunizations Tetanus Shot up to Date: No Influenza Vaccine within 12 Months: No Pneumococcal Vaccine up to Date: No Physical Exam - Physical Exam Appearance: Well-appearing, No pain distress, Well-nourished Eyes: JOELEL, EOMI, Conjunctiva clear ENT: Ears normal, Nose normal, Oropharynx normal Respiratory: Airway patent, Breath sounds clear, Breath sounds equal, Respirations nonlabored Cardiovascular: RRR, Pulses normal, No rub, No murmur GI/: Soft, Nontender, No masses, Bowel sounds normal, No Organomegaly Musculoskeletal: Normal strength, ROM intact, No edema, No calf tenderness Skin: Warm, Dry, Normal color Neurological: Sensation intact, Motor intact, Reflexes intact, Cranial nerves intact, Alert, Oriented Psychiatric: Affect appropriate, Mood appropriate Critical Care Note - Critical Care Note Total Time (mins): 0 Course - Course Hematology/Chemistry: 12/05/17 10:50 Orders, Labs, Meds: Lab Review 12/05/17 12/05/17 10:30 10:50 WBC 6.89 RBC 5.00 Hgb 11.5 L Hct 36.2 L MCV 72.4 L MCH 23.0 L MCHC 31.8 RDW Coeff of Angel 15.1 H Plt Count 352 Immature Gran % (Auto) 0.3 Neut % (Auto) 67.6 Lymph % (Auto) 22.5 Jack % (Auto) 8.0 Eos % (Auto) 1.0 Baso % (Auto) 0.6 Immature Gran # (Auto) 0.0 Neut # 4.7 Lymph # 1.6 Jack # 0.6 Eos # 0.1 Baso # 0.0 Urine Color Yellow Urine Clarity Clear Urine pH 5.5 Ur Specific [place] 1.025 Urine Protein 1+ Urine Glucose (UA) Negative Urine Ketones Negative Urine Blood Negative Urine Nitrite Negative Urine Bilirubin Negative Urine Urobilinogen 0.2 Ur Leukocyte Esterase 1+ Urine Microscopic WBC 5-10 Ur Squamous Epith Cells 30-50 Urine Bacteria 1+ Orders Category Date Time Status BLOOD CULTURE Stat LAB 12/05/17 10:28 Ordered CBC W/ AUTO DIFF Stat LAB 12/05/17 10:50 Completed COMPREHENSIVE METABOLIC PANEL Stat LAB 12/05/17 10:50 Received PROCALCITONIN Stat LAB 12/05/17 10:50 Received URINALYSIS C & S IF INDICATED Stat LAB 12/05/17 10:30 Completed URINE CULTURE Routine LAB 12/05/17 10:30 Received Vital Signs: Temp Pulse Resp BP Pulse Ox 12/05/17 09:53 98.2 F 74 18 121/76 99 Departure - Departure Time of Disposition: 11:28 Disposition: HOME SELF-CARE Discharge Problem: Nausea, Vomiting Instructions: Nausea and Vomiting in (ED) Condition: Good Pt referred to PMD for follow-up: Yes IPMP verified?: No Additional Instructions: Please call your Family Physician as soon as possible to schedule a follow-up appointment. DRINK MORE FLUID REST MUCH YOU CAN PLEASE CONTACT YOUR MD SKYE Allergies/Adverse Reactions: Allergies codeine Adverse Reaction (Verified 11/08/17 08:37) Vomiting hydrocodone [From Lortab] Adverse Reaction (Verified 11/08/17 08:37) tramadol Adverse Reaction (Verified 11/08/17 08:37) Home Medications: Ambulatory Orders Vit Calc,Iron,Folic [ Vitamins] 1 each PO DAILY 11/08/17
== END 2017-12-05 11:30 | disposition home or self-care (01) ==
LOC: ED 09:52
DX: R11.2 Nausea with vomiting, unspecified (principal); Z34.91 Encounter for supervision of normal pregnancy, unspecified, first trimester
CPT/HCPCS: 36415; 80053; 81001; 84145; 85025; 87040; 87086; 99282

== ENCOUNTER 2017-12-09 22:18 | Outpatient (CLI) | END 2017-12-09 22:19 | disposition short-term general hospital (02) | LOC: AMBL 22:18 | PROVIDERS: ATTEND Internal Medicine Geriatric Medicine | DX: R11.2 Nausea with vomiting, unspecified (principal); R68.89 Other general symptoms and signs; R53.1 Weakness; Z33.1 Pregnant state, incidental ==

== ENCOUNTER 2017-12-30 16:03 | Emergency (ER) ==
[2017-12-30 16:09] VITALS: BP 141/73; TEMP 97.5; BMI 27.4
--- NOTE | 2017-12-30 17:33 | ED.PDOC ---
General ED Provider: Dr. CHARISSE ALMANZA Chief Complaint: Vaginal Bleeding Stated Complaint: Patient is 12 weeks was diagnosed with Anti Souris antiboidies and her boyfriend is being tested. She had an US 2 days ago that was normal. Started having a bloody show and was worried she may be having a miscarriage. She request to be sent to [facility] for an US where her doctor Dr Callahan is. Time Seen by Physician: 16:15 Mode of Arrival: Walk-In Information Source: Patient Primary Care Provider: KENNETH ALEGRIA Nursing and Triage Documentation Reviewed and Agree: Yes Reviewed sepsis parameters & appropriate labs ordered?: No System Inflammatory Response Syndrome: Not Applicable Sepsis Protocol: For patient's 13 years and over: Temp is 96.8 and below OR 101 and greater Pulse >90 BPM Resp >20/minute Acutely Altered Mental Status Are patient's symptoms suggestive of a new infection, such as: -Pneumonia -Skin, Soft Tissue -Endocarditis -UTI -Bone, Joint Infection -Implantable Device -Acute Abdominal Infection -Wound Infection -Meningitis -Blood Stream Catheter Infection -Unknown System Inflammatory Response Syndrome: Not Applicable STUDY SPECIALIST Complaint Exam - Labor/Delivery Complaint/Exam Expected Date of Delivery: 07/13/18 Review of Systems - Review Of Systems Constitutional: Reports: No symptoms Eyes: Reports: No symptoms Ears, Nose, Mouth, Throat: Reports: No symptoms Respiratory: Reports: No symptoms Cardiac: Reports: No symptoms GI: Reports: No symptoms : Reports: Other (vaginal bleeding mild only with wipping. ) Musculoskeletal: Reports: No symptoms Skin: Reports: No symptoms Neurological: Reports: Anxiety Endocrine: Reports: No symptoms Hematologic/Lymphatic: Reports: No symptoms All Other Systems: Reviewed and Negative Past Medical History - Past Medical History Previously Healthy: Yes Endocrine: Reports: None Cardiovascular: Reports: None Respiratory: Reports: None Hematological: Reports: None Gastrointestinal: Reports: None Genitourinary: Reports: Unknown (chronic cervicitis states negative cultures no benefit antibiotics), Other (PMH of multiple positive urinalyses with negative cultures and negative urinalyses from cath'd urines.) Neuro/Psych: Reports: None, Bipolar Disorder, PTSD, Other (AFFECTIVE ADD MANIC DEPRESSION) Musculoskeletal: Reports: Back Pain Cancer: Reports: None Last Menstrual Period: Other Pertinent Past Medical History: DRUG PROBLEMS IN THE PAST, PID - Surgical History General Surgical History: Reports: None, Other (vag surgery for hematoma 30 min after delivery, 10/03/16) - Family History Family History: Reports: None - Social History Smoking Status: Former smoker Hx Substance Use: No Alcohol Screening: None - Immunizations Tetanus Shot up to Date: Yes Influenza Vaccine within 12 Months: No Pneumococcal Vaccine up to Date: No Physical Exam - Physical Exam Appearance: Well-appearing, No pain distress, Well-nourished Eyes: JOELLE, EOMI, Conjunctiva clear ENT: Ears normal, Nose normal, Oropharynx normal Neck: Supple Respiratory: Airway patent, Breath sounds clear, Breath sounds equal, Respirations nonlabored Cardiovascular: RRR, Pulses normal, No rub, No murmur GI/: Soft (Gravid consistent with days. ), No masses, Bowel sounds normal, No Organomegaly Musculoskeletal: Normal strength, ROM intact, No edema, No calf tenderness Skin: Warm, Dry, Normal color Neurological: Sensation intact, Motor intact, Reflexes intact, Cranial nerves intact, Alert, Oriented Psychiatric: Anxious Critical Care Note - Critical Care Note Total Time (mins): 0 Comments: discussed with Dr. Bishop guerrero at [facility] who was in a section case. He stated that even if she was having a miscarriage there was nothing he could do to help stop it. He states that he will look at her boyfriends Tests and call her tonight. Offered to sent patient to [facility] for and ultra sound but she declined. Course - Course Orders, Labs, Meds: Lab Review 12/30/17 12/30/17 16:20 16:49 HCG, Quant [id number] Urine Color Yellow Urine Clarity Slightly Urine pH 6.0 Ur Specific [place] 1.020 Urine Protein Negative Urine Glucose (UA) Negative Urine Ketones 2+ Urine Blood Negative Urine Nitrite Negative Urine Bilirubin Negative Urine Urobilinogen 0.2 Ur Leukocyte Esterase Trace Urine Microscopic RBC 0-2 Urine Microscopic WBC 5-10 Ur Squamous Epith Cells 10-20 Urine Bacteria 1+ Urine Yeast Trace Orders Category Date Time Status HCG,QUANTITATIVE Stat LAB 12/30/17 16:20 Completed UA [URINALYSIS C & S IF INDICATED] Stat LAB 12/30/17 16:49 Completed URINE CULTURE Stat LAB 12/30/17 16:49 Completed Vital Signs: Temp Pulse Resp BP Pulse Ox 12/30/17 16:05 97.5 F L 84 20 141/73 H 99 Departure - Departure Time of Disposition: 17:33 Disposition: HOME SELF-CARE Discharge Problem: Bleeding from vagina, Bloody show and cramping in early Instructions: Threatened Miscarriage (ED) Condition: Stable Pt referred to PMD for follow-up: Yes IPMP verified?: No Additional Instructions: Spoke to your doctor who states that he will call you as soon as he is done with a case. Allergies/Adverse Reactions: Allergies codeine Adverse Reaction (Verified 12/30/17 16:10) Vomiting hydrocodone [From Lortab] Adverse Reaction (Verified 12/30/17 16:10) tramadol Adverse Reaction (Verified 12/30/17 16:10) Home Medications: Ambulatory Orders Vit Calc,Iron,Folic [ Vitamins] 1 each PO DAILY 11/08/17 Disposition Discussed With: Patient, Family
== END 2017-12-30 17:55 | disposition home or self-care (01) ==
LOC: ED 16:03
DX: O20.0 Threatened abortion (principal); Z3A.12 12 weeks gestation of pregnancy
CPT/HCPCS: 36415; 81001; 84702; 87086; 99283

== ENCOUNTER 2018-01-29 14:10 | Emergency (ER) ==
[2018-01-29 14:15] VITALS: BP 154/72; TEMP 98.8; BMI 29.7
--- NOTE | 2018-01-29 15:31 | ED.PDOC ---
General ED Provider: Dr. TABATHA TURCIOS Chief Complaint: Rash Stated Complaint: States she is 17 weeks and has developed a rash bilat forearms. Onset this morning. States it has almost resolved at present time. Denies other problems. Was hospitlized 2 weeks ago for hyperemesis gravidatum Time Seen by Physician: 15:15 Mode of Arrival: Walk-In Information Source: Patient Exam Limitations: No limitations Primary Care Provider: KENNETH ALEGRIA Nursing and Triage Documentation Reviewed and Agree: Yes Reviewed sepsis parameters & appropriate labs ordered?: Yes System Inflammatory Response Syndrome: Not Applicable Sepsis Protocol: For patient's 13 years and over: Temp is 96.8 and below OR 101 and greater Pulse >90 BPM Resp >20/minute Acutely Altered Mental Status Are patient's symptoms suggestive of a new infection, such as: -Pneumonia -Skin, Soft Tissue -Endocarditis -UTI -Bone, Joint Infection -Implantable Device -Acute Abdominal Infection -Wound Infection -Meningitis -Blood Stream Catheter Infection -Unknown System Inflammatory Response Syndrome: Not Applicable GI Complaint Exam - Vomiting/Diarrhea Complaint/Exam Symptoms Are: Resolved Initial Severity: Moderate Current Severity: None Aggravating: Reports: Liquids Alleviating: Reports: Clear liquids, Medications Associated Signs and Symptoms: Reports: Dizziness Recent Positive Test: Yes Non-GI Risk Factors: Reports: None Surgical Obstruction Risk Factors: Reports: None Related Surgical History: Reports: None Abdominal Findings: Present: None Review of Systems - Review Of Systems Constitutional: Reports: No symptoms Eyes: Reports: No symptoms Ears, Nose, Mouth, Throat: Reports: No symptoms Respiratory: Reports: No symptoms Cardiac: Reports: No symptoms GI: Reports: No symptoms : Reports: No symptoms, Other () Musculoskeletal: Reports: No symptoms Skin: Reports: No symptoms, Rash Neurological: Reports: No symptoms Endocrine: Reports: No symptoms Hematologic/Lymphatic: Reports: No symptoms All Other Systems: Reviewed and Negative Past Medical History - Past Medical History Previously Healthy: Yes Endocrine: Reports: None Cardiovascular: Reports: None Respiratory: Reports: None Hematological: Reports: None Gastrointestinal: Reports: None Genitourinary: Reports: Unknown (chronic cervicitis states negative cultures no benefit antibiotics), Other (PMH of multiple positive urinalyses with negative cultures and negative urinalyses from cath'd urines.) Neuro/Psych: Reports: None, Bipolar Disorder, PTSD, Other (AFFECTIVE ADD MANIC DEPRESSION) Musculoskeletal: Reports: Back Pain Cancer: Reports: None Last Menstrual Period: 17 weeks preg Other Pertinent Past Medical History: DRUG PROBLEMS IN THE PAST, PID - Surgical History General Surgical History: Reports: None, Other (vag surgery for hematoma 30 min after delivery, 10/03/16) - Family History Family History: Reports: None - Social History Smoking Status: Former smoker Hx Substance Use: No Alcohol Screening: None - Immunizations Influenza Vaccine within 12 Months: No Pneumococcal Vaccine up to Date: No Physical Exam - Physical Exam Appearance: Obese Ill-appearing: None Pain Distress: None Eyes: JOELLE, EOMI, Conjunctiva clear ENT: Ears normal, Nose normal, Oropharynx normal Respiratory: Airway patent, Breath sounds clear, Breath sounds equal, Respirations nonlabored Cardiovascular: RRR, Pulses normal, No rub, No murmur GI/: Soft, Nontender, No masses, Bowel sounds normal, No Organomegaly Skin: Dry (fine rash scattered volar aspect forearms bilaterally, red facial rash in butterfly distribution ) Neurological: Sensation intact, Motor intact, Reflexes intact, Cranial nerves intact, Alert, Oriented Psychiatric: Affect appropriate, Mood appropriate Critical Care Note - Critical Care Note Total Time (mins): 0 Course - Course Hematology/Chemistry: 01/29/18 15:35 01/29/18 15:35 Orders, Labs, Meds: Lab Review 01/29/18 01/29/18 15:35 15:35 WBC 7.25 RBC 4.49 Hgb 10.1 L Hct 32.1 L MCV 71.5 L MCH 22.5 L MCHC 31.5 L RDW Coeff of Angel 15.2 H Plt Count 360 Immature Gran % (Auto) 0.4 Neut % (Auto) 54.3 Lymph % (Auto) 26.1 [place] % (Auto) 15.6 H Eos % (Auto) 3.0 Baso % (Auto) 0.6 Immature Gran # (Auto) 0.0 Neut # (Auto) 3.9 Lymph # (Auto) 1.9 [place] # (Auto) 1.1 Eos # (Auto) 0.2 Baso # (Auto) 0.0 ESR 24 H Sodium 136 Potassium 4.3 Chloride 107 Carbon Dioxide 23 Anion Gap 10.3 BUN 6 L Creatinine 0.53 L Estimated GFR (MDRD) 147.00 BUN/Creatinine Ratio 11.32 Glucose 70 Calcium 8.7 Total Bilirubin 0.2 AST 10 L ALT 9 L Alkaline Phosphatase 45 Total Protein 6.4 Albumin 2.7 L Globulin 3.7 Albumin/Globulin Ratio 0.73 Orders Category Date Time Status ANTI-NUCLEAR ANTIBODY SCREEN Stat LAB 01/29/18 15:35 Received CBC W/ AUTO DIFF Stat LAB 01/29/18 15:35 Completed CMP [COMPREHENSIVE METABOLIC PANEL] Stat LAB 01/29/18 15:35 Completed ESR Stat LAB 01/29/18 15:35 Completed Vital Signs: Temp Pulse Resp BP Pulse Ox 01/29/18 14:12 98.8 F 100 H 20 154/72 H 98 Departure - Departure Time of Disposition: 17:25 Disposition: HOME SELF-CARE Discharge Problem: Rash and nonspecific skin eruption Instructions: Acute Rash (ED) Condition: Good Pt referred to PMD for follow-up: Yes (Dr Callahan) IPMP verified?: No Additional Instructions: Follow up with your primary care provider as soon as possible Remain on all meds per direction of your PCP Keep area clean and dry Allergies/Adverse Reactions: Allergies codeine Adverse Reaction (Verified 12/30/17 16:10) Vomiting hydrocodone [From Lortab] Adverse Reaction (Verified 12/30/17 16:10) tramadol Adverse Reaction (Verified 12/30/17 16:10) Home Medications: Ambulatory Orders Doxylamine Succinate/Vit B6 [Rafal Mancia 10-10 mg Tablet] 1 each PO Q6H Ondansetron [Zofran Odt] 4 mg PO Q4H 01/29/18 Pantoprazole Sodium [Protonix] 40 mg PO BID 01/29/18 Prednisone 5 mg PO BID 01/29/18 Promethazine HCl [Phenergan Tab] 25 mg PO Q6H 01/29/18 Sucralfate Susp [Carafate] 10 ml PO QID 01/29/18 Disposition Discussed With: Patient Additional Comments Additional Comments: Follow up with [employer] [employer] in next week. Take all meds as directed
== END 2018-01-29 17:55 | disposition home or self-care (01) ==
LOC: ED 14:10
DX: R21 Rash and other nonspecific skin eruption (principal); Z3A.17 17 weeks gestation of pregnancy
CPT/HCPCS: 36415; 80053; 85025; 85651; 86038; 99283

== ENCOUNTER 2018-02-03 13:29 | Outpatient (CLI) | END 2018-02-03 13:30 | disposition short-term general hospital (02) | LOC: AMBL 13:29 | PROVIDERS: ATTEND Family Medicine | DX: K27.4 Chronic or unspecified peptic ulcer, site unspecified, with hemorrhage (principal); R10.13 Epigastric pain; Z3A.18 18 weeks gestation of pregnancy ==

== ENCOUNTER 2018-03-07 15:20 | Emergency (ER) ==
[2018-03-07 15:26] VITALS: BP 128/62; TEMP 99; BMI 30.2
--- NOTE | 2018-03-07 16:01 | ED.PDOC ---
General ED Provider: Dr. TABATHA TURCIOS Chief Complaint: Nausea/Vomiting Stated Complaint: 20 WK GESTATION / . HX HYPEREMESIS GRAVIDATUM, UNABLE TO KEEP LIQUIDS MEDS DOWM. ATTEMPTING TO AVOID BEING HOSPITALIZED. OB IN [place] DR MCKEON Time Seen by Physician: 15:45 Mode of Arrival: Walk-In Information Source: Patient Exam Limitations: No limitations Primary Care Provider: KENNETH ALEGRIA Nursing and Triage Documentation Reviewed and Agree: Yes Reviewed sepsis parameters & appropriate labs ordered?: Yes System Inflammatory Response Syndrome: Not Applicable Sepsis Protocol: For patient's 13 years and over: Temp is 96.8 and below OR 101 and greater Pulse >90 BPM Resp >20/minute Acutely Altered Mental Status Are patient's symptoms suggestive of a new infection, such as: -Pneumonia -Skin, Soft Tissue -Endocarditis -UTI -Bone, Joint Infection -Implantable Device -Acute Abdominal Infection -Wound Infection -Meningitis -Blood Stream Catheter Infection -Unknown System Inflammatory Response Syndrome: Not Applicable Review of Systems - Review Of Systems Constitutional: Reports: No symptoms Eyes: Reports: No symptoms Ears, Nose, Mouth, Throat: Reports: No symptoms Respiratory: Reports: No symptoms Cardiac: Reports: No symptoms GI: Reports: No symptoms : Reports: No symptoms Musculoskeletal: Reports: No symptoms Skin: Reports: No symptoms Neurological: Reports: No symptoms Endocrine: Reports: No symptoms Hematologic/Lymphatic: Reports: No symptoms All Other Systems: Reviewed and Negative Past Medical History - Past Medical History Previously Healthy: Yes Endocrine: Reports: None Cardiovascular: Reports: None Respiratory: Reports: None Hematological: Reports: None Gastrointestinal: Reports: None Genitourinary: Reports: Unknown (chronic cervicitis states negative cultures no benefit antibiotics), Other (PMH of multiple positive urinalyses with negative cultures and negative urinalyses from cath'd urines.) Neuro/Psych: Reports: None, Bipolar Disorder, PTSD, Other (AFFECTIVE ADD MANIC DEPRESSION) Musculoskeletal: Reports: Back Pain Cancer: Reports: None Last Menstrual Period: 22 weeks preg Other Pertinent Past Medical History: DRUG PROBLEMS IN THE PAST, PID - Surgical History General Surgical History: Reports: None, Other (vag surgery for hematoma 30 min after delivery, 10/03/16) - Family History Family History: Reports: None - Social History Smoking Status: Former smoker Hx Substance Use: No Alcohol Screening: None - Immunizations Influenza Vaccine within 12 Months: No Pneumococcal Vaccine up to Date: No Physical Exam - Physical Exam Appearance: Ill-appearing, Obese Ill-appearing: Moderate Pain Distress: Mild Eyes: JOELLE, EOMI, Conjunctiva clear ENT: Ears normal, Nose normal, Oropharynx normal Respiratory: Airway patent, Breath sounds clear, Breath sounds equal, Respirations nonlabored Cardiovascular: RRR, Pulses normal, No rub, No murmur GI/: Soft, Tender Musculoskeletal: Normal strength, ROM intact, No edema, No calf tenderness Skin: Warm, Dry, Normal color Neurological: Sensation intact, Motor intact, Reflexes intact, Cranial nerves intact, Alert, Oriented Re-Evaluation - Re-Evaluation Time of Re-Evaluation: 19:00 (No emesis) Status: Improved Vital Signs Stable: Yes Appearance: NAD Lungs: Clear Skin: Warm and Dry CV: RRR Critical Care Note - Critical Care Note Total Time (mins): 30 Course - Course Hematology/Chemistry: 03/07/18 16:16 03/07/18 16:16 Orders, Labs, Meds: Lab Review 03/07/18 03/07/18 03/07/18 16:16 16:16 16:50 WBC 8.87 RBC 4.87 Hgb 10.4 L Hct 33.5 L MCV 68.8 L MCH 21.4 L MCHC 31.0 L RDW Coeff of Angel 15.8 H Plt Count 363 Immature Gran % (Auto) 0.5 Neut % (Auto) 73.0 Lymph % (Auto) 16.0 Boyd % (Auto) 9.2 Eos % (Auto) 0.7 Baso % (Auto) 0.6 Immature Gran # (Auto) 0.0 Neut # (Auto) 6.5 Lymph # (Auto) 1.4 Boyd # (Auto) 0.8 Eos # (Auto) 0.1 Baso # (Auto) 0.1 Sodium 136 Potassium 4.2 Chloride 107 Carbon Dioxide 20 L Anion Gap 13.2 BUN 6 L Creatinine 0.58 L Estimated GFR (MDRD) 133.00 BUN/Creatinine Ratio 10.34 Glucose 69 L Calcium 9.1 Total Bilirubin 0.3 AST 10 L ALT 12 Alkaline Phosphatase 57 Total Protein 7.1 Albumin 2.9 L Globulin 4.2 Albumin/Globulin Ratio 0.69 Lipase 28 Urine Color Yellow Urine Clarity Cloudy Urine pH 6.0 Ur Specific [place] >=1.030 Urine Protein Negative Urine Glucose (UA) Negative Urine Ketones 3+ Urine Blood Negative Urine Nitrite Negative Urine Bilirubin Negative Urine Urobilinogen 0.2 Ur Leukocyte Esterase 1+ Ur Squamous Epith Cells Tntc Amorphous Sediment 3+ Urine Bacteria 1+ Orders Category Date Time Status IV [ED IV/MEDIPORT/POWERPORT] .ONCE EMERGENCY 03/07/18 16:02 Active CBC W/ AUTO DIFF Stat LAB 03/07/18 16:16 Completed CMP [COMPREHENSIVE METABOLIC PANEL] Stat LAB 03/07/18 16:16 Completed LIPASE Stat LAB 03/07/18 16:16 Completed UA [URINALYSIS C & S IF INDICATED] Stat LAB 03/07/18 16:50 Completed URINE CULTURE Routine LAB 03/07/18 16:50 Received 0.9 % Sodium Chloride [Saline Flush] MEDS 03/07/18 16:02 Active 1 syr IVF PRN PRN Promethazine HCl [Phenergan 25 mg/ml Vial] MEDS 03/07/18 16:36 Discontinued 25 mg .ROUTE .STK-MED ONE Promethazine HCl [Phenergan 25 mg/ml Vial] 25 mg MEDS 03/07/18 16:03 Discontinued 0.9 % Sodium Chloride [Sodium Chloride] 50 ml IV ONCE Sodium Chloride 0.9% [Sodium Chloride] 1,000 ml MEDS 03/07/18 16:02 Discontinued IV BOLUS Medications Generic Name Dose Route Start Last Admin Trade Name Freq PRN Reason Stop Dose Admin Sodium Chloride 1 syr 03/07/18 16:02 03/07/18 16:46 Saline Flush IVF 1 syr PRN PRN Administration To flush IV Discontinued Medications Generic Name Dose Route Start Last Admin Trade Name Freq PRN Reason Stop Dose Admin Promethazine HCl 25 mg/ Sodium 51 mls @ 75 mls/hr 03/07/18 16:03 03/07/18 16: 44 Chloride IV 03/07/18 16:43 75 mls/hr ONCE STA Administration Sodium Chloride 1,000 mls @ 500 mls/hr 03/07/18 16:02 03/07/18 16:44 Sodium Chloride IV 03/07/18 18:01 500 mls/hr BOLUS STA Administration Vital Signs: Temp Pulse Resp BP Pulse Ox 03/07/18 15:23 99.0 F 94 H 16 128/62 96 Departure - Departure Time of Disposition: 19:50 Disposition: HOME SELF-CARE Discharge Problem: Vomiting affecting , antepartum Instructions: Hyperemesis Gravidarum (ED) Condition: Good Pt referred to PMD for follow-up: Yes (ObGyn next week) IPMP verified?: No Additional Instructions: Advanced maintain adequate oral liquids and increast diet as tolerated Return to work as tolerated Allergies/Adverse Reactions: Allergies codeine Adverse Reaction (Verified 03/07/18 15:26) Vomiting hydrocodone [From Lortab] Adverse Reaction (Verified 03/07/18 15:26) tramadol Adverse Reaction (Verified 03/07/18 15:26) Home Medications: Ambulatory Orders Doxylamine Succinate/Vit B6 [Diclegis Dr 10-10 mg Tablet] 1 each PO Q6H Ondansetron [Zofran Odt] 4 mg PO Q4H 01/29/18 Pantoprazole Sodium [Protonix] 40 mg PO BID 01/29/18 Promethazine HCl [Phenergan Tab] 25 mg PO Q6H 01/29/18 Sucralfate Susp [Carafate] 10 ml PO QID 01/29/18 Disposition Discussed With: Patient, Family GI Complaint Exam - Vomiting/Diarrhea Complaint/Exam Symptoms Are: Still present Episodes of Vomiting over last 24 Hours: 5 Episodes of Diarrhea Over Last 24 Hours: 0 Initial Severity: Severe Current Severity: Moderate Character of Vomiting: Reports: Bilious, Retching Character of Diarrhea: Reports: Watery Aggravating: Reports: Food, Liquids, Position Alleviating: Reports: Clear liquids, Medications Associated Signs and Symptoms: Reports: Light-headedness Last Oral Intake: THIS AM : 5 Para: 4 Surgical Obstruction Risk Factors: Reports: None Related Surgical History: Reports: None Abdominal Findings: Present: None Differential Diagnoses: Dehydration, , UTI
[2018-03-07] MEDS ORDERED: SODIUM CHLORIDE 1,000 ML IV STA (16:02)
[2018-03-07] MEDS ORDERED: PHENERGAN 25 MG/ML VIAL 25 MG in SODIUM CHLORIDE 50 ML IV STA (16:03)
[2018-03-07] MEDS ORDERED: PHENERGAN 25 MG/ML VIAL ONE (16:36)
== END 2018-03-07 20:15 | disposition home or self-care (01) ==
LOC: ED 15:20
DX: O21.0 Mild hyperemesis gravidarum (principal); Z3A.22 22 weeks gestation of pregnancy
CPT/HCPCS: 36415; 80053; 81001; 83690; 85025; 87086; 96361; 96365; 99283

== ENCOUNTER 2018-03-18 14:38 | Emergency (ER) ==
[2018-03-18 14:49] VITALS: BP 121/80; TEMP 97.8; BMI 30.7
--- NOTE | 2018-03-18 14:58 | ED.PDOC ---
General ED Provider: Dr. LUCY RUELAS Chief Complaint: Nausea/Vomiting Stated Complaint: Pt with history of hyperemesis gravidarum presents to the ER with c/o of upper abdomenial discomfort due to multiple episodes of vomitings. She states that she could not push down anything. 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 Complaint/Exam Expected Date of Delivery: 07/12/18 Past Medical History - Past Medical History Previously Healthy: Yes Endocrine: Reports: None Cardiovascular: Reports: None Respiratory: Reports: None Hematological: Reports: None Gastrointestinal: Reports: None Genitourinary: Reports: Unknown (chronic cervicitis states negative cultures no benefit antibiotics), Other (PMH of multiple positive urinalyses with negative cultures and negative urinalyses from cath'd urines.) Neuro/Psych: Reports: None, Bipolar Disorder, PTSD, Other (AFFECTIVE ADD MANIC DEPRESSION) Musculoskeletal: Reports: Back Pain Cancer: Reports: None Last Menstrual Period: 2017 Other Pertinent Past Medical History: DRUG PROBLEMS IN THE PAST, PID - Surgical History General Surgical History: Reports: None, Other (vag surgery for hematoma 30 min after delivery, 10/03/16) - Family History Family History: Reports: None - Social History Smoking Status: Former smoker Hx Substance Use: No Alcohol Screening: None - Immunizations Tetanus Shot up to Date: Yes Influenza Vaccine within 12 Months: No Pneumococcal Vaccine up to Date: No Course - Course Vital Signs: Temp Pulse Resp BP Pulse Ox 03/18/18 14:44 97.8 F 89 16 121/80 97 Departure - Departure Allergies/Adverse Reactions: Allergies codeine Adverse Reaction (Verified 03/18/18 14:43) Vomiting hydrocodone [From Lortab] Adverse Reaction (Verified 03/18/18 14:43) tramadol Adverse Reaction (Verified 03/18/18 14:43) Home Medications: Ambulatory Orders Doxylamine Succinate/Vit B6 [Diclegis Dr 10-10 mg Tablet] 1 each PO Q6H Ondansetron [Zofran Odt] 4 mg PO Q4H 01/29/18 Pantoprazole Sodium [Protonix] 40 mg PO BID 01/29/18 Promethazine HCl [Phenergan Tab] 25 mg PO Q6H 01/29/18 Sucralfate Susp [Carafate] 10 ml PO QID 01/29/18
[2018-03-18] MEDS ORDERED: ZOFRAN 4 MG/2 ML IVP STA (15:10)
[2018-03-18] MEDS ORDERED: SODIUM CHLORIDE 1,000 ML IV STA ×2 (15:12→17:50)
[2018-03-18] MEDS ORDERED: PHENERGAN 25 MG/ML VIAL 25 MG in SODIUM CHLORIDE 50 ML IV STA (15:16)
[2018-03-18] MEDS ORDERED: PHENERGAN 25 MG/ML VIAL ONE (15:45)
[2018-03-18] MEDS ORDERED: ROCEPHIN 1 GM in SODIUM CHLORIDE 50 ML IV STA (18:12)
--- NOTE | 2018-03-18 18:17 | ED.PDOC ---
General ED Provider: Dr. LUCY RUELAS Chief Complaint: Nausea/Vomiting Stated Complaint: nausea, vomiting 24 week Time Seen by Physician: 15:00 (seen with the nursing staff at all times ) Mode of Arrival: Walk-In Information Source: Patient Exam Limitations: No limitations Primary Care Provider: KENNETH ALEGRIA Nursing and Triage Documentation Reviewed and Agree: Yes Reviewed sepsis parameters & appropriate labs ordered?: Yes System Inflammatory Response Syndrome: Not Applicable Sepsis Protocol: For patient's 13 years and over: Temp is 96.8 and below OR 101 and greater Pulse >90 BPM Resp >20/minute Acutely Altered Mental Status Are patient's symptoms suggestive of a new infection, such as: -Pneumonia -Skin, Soft Tissue -Endocarditis -UTI -Bone, Joint Infection -Implantable Device -Acute Abdominal Infection -Wound Infection -Meningitis -Blood Stream Catheter Infection -Unknown GI Complaint Exam - Vomiting/Diarrhea Complaint/Exam Onset/Duration: 2 days Symptoms Are: Resolved Episodes of Vomiting over last 24 Hours: 6 Episodes of Diarrhea Over Last 24 Hours: 0 Initial Severity: Moderate Current Severity: None Aggravating: Reports: None Alleviating: Reports: None Associated Signs and Symptoms: Denies: Dizziness, Light-headedness, Melena, Hematemesis, Fever, Abdominal pain, Cramping Related History: Reports: Similar episode : 5 Para: 1 Recent Positive Test: Yes Non-GI Risk Factors: Reports: None Surgical Obstruction Risk Factors: Reports: None Related Surgical History: Reports: None Abdominal Findings: Present: None Kussmaul Respirations Present: No Differential Diagnoses: Viral Gastroenteritis, , UTI Review of Systems - Review Of Systems Constitutional: Reports: No symptoms Eyes: Reports: No symptoms Ears, Nose, Mouth, Throat: Reports: No symptoms Respiratory: Reports: No symptoms Cardiac: Reports: No symptoms GI: Reports: Vomiting : Reports: Dysuria Musculoskeletal: Reports: No symptoms Skin: Reports: No symptoms Neurological: Reports: No symptoms Endocrine: Reports: No symptoms Hematologic/Lymphatic: Reports: No symptoms All Other Systems: Reviewed and Negative Past Medical History - Past Medical History Previously Healthy: Yes Endocrine: Reports: None Cardiovascular: Reports: None Respiratory: Reports: None Hematological: Reports: None Gastrointestinal: Reports: None Genitourinary: Reports: Unknown (chronic cervicitis states negative cultures no benefit antibiotics), Other (PMH of multiple positive urinalyses with negative cultures and negative urinalyses from cath'd urines.) Neuro/Psych: Reports: None, Bipolar Disorder, PTSD, Other (AFFECTIVE ADD MANIC DEPRESSION) Musculoskeletal: Reports: Back Pain Cancer: Reports: None Last Menstrual Period: 2017 Other Pertinent Past Medical History: DRUG PROBLEMS IN THE PAST, PID - Surgical History General Surgical History: Reports: None, Other (vag surgery for hematoma 30 min after delivery, 10/03/16) - Family History Family History: Reports: None - Social History Smoking Status: Former smoker Hx Substance Use: No Alcohol Screening: None - Immunizations Tetanus Shot up to Date: Yes Influenza Vaccine within 12 Months: No Pneumococcal Vaccine up to Date: No Physical Exam - Physical Exam Appearance: Well-appearing, No pain distress, Well-nourished Eyes: JOELLE, EOMI, Conjunctiva clear ENT: Ears normal, Nose normal, Oropharynx normal Respiratory: Airway patent, Breath sounds clear, Breath sounds equal, Respirations nonlabored Cardiovascular: RRR, Pulses normal, No rub, No murmur GI/: Soft, Nontender, No masses, Bowel sounds normal, No Organomegaly Musculoskeletal: Normal strength, ROM intact, No edema, No calf tenderness Skin: Warm, Dry, Normal color Neurological: Sensation intact, Motor intact, Reflexes intact, Cranial nerves intact, Alert, Oriented Psychiatric: Affect appropriate, Mood appropriate Critical Care Note - Critical Care Note Total Time (mins): 0 Course - Course Hematology/Chemistry: 03/18/18 15:30 03/18/18 15:30 Orders, Labs, Meds: Lab Review 03/18/18 03/18/18 03/18/18 15:30 15:30 15:50 WBC 11.14 H RBC 4.36 Hgb 9.1 L Hct 29.7 L MCV 68.1 L MCH 20.9 L MCHC 30.6 L RDW Coeff of Angel 15.9 H Plt Count 346 Immature Gran % (Auto) 0.4 Neut % (Auto) 71.6 Lymph % (Auto) 16.9 [place] % (Auto) 9.5 Eos % (Auto) 1.2 Baso % (Auto) 0.4 Immature Gran # (Auto) 0.1 Neut # (Auto) 8.0 H Lymph # (Auto) 1.9 [place] # (Auto) 1.1 Eos # (Auto) 0.1 Baso # (Auto) 0.0 Sodium 135 L Potassium 4.1 Chloride 108 H Carbon Dioxide 18 L Anion Gap 13.1 BUN 6 L Creatinine 0.52 L Estimated GFR (MDRD) 150.00 BUN/Creatinine Ratio 11.53 Glucose 70 Calcium 8.6 Total Bilirubin 0.2 AST 12 L ALT 8 L Alkaline Phosphatase 53 Total Protein 6.6 Albumin 2.7 L Globulin 3.9 Albumin/Globulin Ratio 0.69 Urine Color Yellow Urine Clarity Cloudy Urine pH 6.5 Ur Specific [place] 1.015 Urine Protein Negative Urine Glucose (UA) Negative Urine Ketones 2+ Urine Blood Negative Urine Nitrite Negative Urine Bilirubin Negative Urine Urobilinogen 0.2 Ur Leukocyte Esterase 2+ Urine Microscopic WBC 5-10 Ur Squamous Epith Cells 20-30 Amorphous Sediment 2+ Urine Bacteria 3+ Orders Category Date Time Status ED IV/MEDIPORT/POWERPORT .ONCE EMERGENCY 03/18/18 15:11 Active CBC W/ AUTO DIFF Stat LAB 03/18/18 15:30 Completed COMPREHENSIVE METABOLIC PANEL Stat LAB 03/18/18 15:30 Completed URINALYSIS C & S IF INDICATED Stat LAB 03/18/18 15:50 Completed URINE CULTURE Stat LAB 03/18/18 15:50 Received 0.9 % Sodium Chloride [Saline Flush] MEDS 03/18/18 15:12 Active 1 syr IVF PRN PRN Ceftriaxone Sodium [Rocephin] 1 gm MEDS 03/18/18 18:12 Ordered 0.9 % Sodium Chloride [Sodium Chloride] 50 ml IV ONCE Nitrofurantoin Monohyd/M-Cryst [Macrobid] MEDS 03/18/18 21:00 Ordered 100 mg PO BID Promethazine HCl [Phenergan 25 mg/ml Vial] MEDS 03/18/18 15:45 Discontinued 25 mg .ROUTE .STK-MED ONE Promethazine HCl [Phenergan 25 mg/ml Vial] 25 mg MEDS 03/18/18 15:16 Discontinued 0.9 % Sodium Chloride [Sodium Chloride] 50 ml IV ONCE Sodium Chloride 0.9% [Sodium Chloride] 1,000 ml MEDS 03/18/18 15:12 Discontinued IV BOLUS Sodium Chloride 0.9% [Sodium Chloride] 1,000 ml MEDS 03/18/18 17:50 Active IV BOLUS Medications Generic Name Dose Route Start Last Admin Trade Name Freq PRN Reason Stop Dose Admin Sodium Chloride 1,000 mls @ 1,000 mls/hr 06/04/18 17:50 Sodium Chloride IV 03/18/18 18:49 BOLUS STA Ceftriaxone Sodium 1 gm/ 50 mls @ 75 mls/hr 03/18/18 18:12 Sodium Chloride IV 03/18/18 18:51 ONCE STA Nitrofurantoin Macrocrystals 100 mg 03/18/18 21:00 Macrobid PO BID LYLE Sodium Chloride 1 syr 03/18/18 15:12 03/18/18 15:53 Saline Flush IVF 1 syr PRN PRN Administration To flush IV Discontinued Medications Generic Name Dose Route Start Last Admin Trade Name Freq PRN Reason Stop Dose Admin Sodium Chloride 1,000 mls @ 1,000 mls/hr 03/18/18 15:12 03/18/18 15:53 Sodium Chloride IV 03/18/18 16:11 1,000 mls/hr BOLUS STA Administration Promethazine HCl 25 mg/ Sodium 51 mls @ 75 mls/hr 03/18/18 15:16 03/18/18 15: 53 Chloride IV 03/18/18 15:56 75 mls/hr ONCE STA Administration Vital Signs: Temp Pulse Resp BP Pulse Ox 03/18/18 14:44 97.8 F 89 16 121/80 97 Departure - Departure Time of Disposition: 18:17 Disposition: HOME SELF-CARE Discharge Problem: Nausea, Vomiting UTI (urinary tract infection) Qualifiers: Urinary tract infection type: site unspecified Instructions: Urinary Tract Infection in Women (ED) Condition: Good Pt referred to PMD for follow-up: Yes IPMP verified?: No Additional Instructions: Please call your Family Physician as soon as possible to schedule a follow-up appointment. Allergies/Adverse Reactions: Allergies codeine Adverse Reaction (Verified 03/18/18 14:43) Vomiting hydrocodone [From Lortab] Adverse Reaction (Verified 03/18/18 14:43) tramadol Adverse Reaction (Verified 03/18/18 14:43) Home Medications: Ambulatory Orders Doxylamine Succinate/Vit B6 [Diclegis Dr 10-10 mg Tablet] 1 each PO Q6H Ondansetron [Zofran Odt] 4 mg PO Q4H 01/29/18 Pantoprazole Sodium [Protonix] 40 mg PO BID 01/29/18 Promethazine HCl [Phenergan Tab] 25 mg PO Q6H 01/29/18 Sucralfate Susp [Carafate] 10 ml PO QID 01/29/18 Disposition Discussed With: Patient
[2018-03-18] MEDS ORDERED: ROCEPHIN ONE (18:36)
[2018-03-18] MEDS ORDERED: MACROBID PO SCH (21:00)
== END 2018-03-18 19:33 | disposition home or self-care (01) ==
LOC: ED 14:38
DX: O23.42 Unspecified infection of urinary tract in pregnancy, second trimester (principal); R11.2 Nausea with vomiting, unspecified
CPT/HCPCS: 36415; 80053; 81001; 85025; 87086; 96361; 96365; 96366; 96367; 96375; 99284

== ENCOUNTER 2018-03-31 22:57 | Emergency (ER) ==
[2018-03-31] MEDS ORDERED: PHENERGAN 25 MG/ML VIAL 25 MG in SODIUM CHLORIDE 50 ML IV STA (22:58)
[2018-03-31] MEDS ORDERED: SODIUM CHLORIDE 1,000 ML IV STA (22:58)
[2018-03-31 23:04] VITALS: BP 127/65; TEMP 98.9; BMI 15.7
[2018-03-31] MEDS ORDERED: PHENERGAN 25 MG/ML VIAL ONE (23:15)
[2018-04-01] MEDS ORDERED: TYLENOL PO STA (00:07)
[2018-04-01] MEDS ORDERED: MYLANTA SUSP PO STA (00:07)
--- NOTE | 2018-04-01 01:26 | ED.PDOC ---
General ED Provider: Dr. TABATHA BRAVO-ER Chief Complaint: Nausea/Vomiting Stated Complaint: i have hyperemesis and i am nauseatec Time Seen by Physician: 22:55 Mode of Arrival: Walk-In Information Source: Patient Exam Limitations: No limitations Primary Care Provider: KENNETH ALEGRIA Nursing and Triage Documentation Reviewed and Agree: Yes Reviewed sepsis parameters & appropriate labs ordered?: Yes System Inflammatory Response Syndrome: Not Applicable Sepsis Protocol: For patient's 13 years and over: Temp is 96.8 and below OR 101 and greater Pulse >90 BPM Resp >20/minute Acutely Altered Mental Status Are patient's symptoms suggestive of a new infection, such as: -Pneumonia -Skin, Soft Tissue -Endocarditis -UTI -Bone, Joint Infection -Implantable Device -Acute Abdominal Infection -Wound Infection -Meningitis -Blood Stream Catheter Infection -Unknown GI Complaint Exam - Vomiting/Diarrhea Complaint/Exam Onset/Duration: severakl weeks Symptoms Are: Still present Initial Severity: Mild Current Severity: Moderate Character of Vomiting: Reports: Non-bilious Aggravating: Reports: None Alleviating: Reports: None Associated Signs and Symptoms: Denies: Dizziness, Light-headedness, Melena, Hematemesis, Fever, Abdominal pain, Cramping Differential Diagnoses: , Other Review of Systems - Review Of Systems Constitutional: Reports: No symptoms Eyes: Reports: No symptoms Ears, Nose, Mouth, Throat: Reports: No symptoms Respiratory: Reports: No symptoms Cardiac: Reports: No symptoms GI: Reports: Nausea : Reports: No symptoms Musculoskeletal: Reports: No symptoms Skin: Reports: No symptoms Neurological: Reports: No symptoms Endocrine: Reports: No symptoms Hematologic/Lymphatic: Reports: No symptoms All Other Systems: Reviewed and Negative Past Medical History - Past Medical History Previously Healthy: Yes Endocrine: Reports: None Cardiovascular: Reports: None Respiratory: Reports: None Hematological: Reports: None Gastrointestinal: Reports: None Genitourinary: Reports: Unknown (chronic cervicitis states negative cultures no benefit antibiotics), Other (PMH of multiple positive urinalyses with negative cultures and negative urinalyses from cath'd urines.) Neuro/Psych: Reports: None, Bipolar Disorder, PTSD, Other (AFFECTIVE ADD MANIC DEPRESSION) Musculoskeletal: Reports: Back Pain Cancer: Reports: None Last Menstrual Period: oct 06 Other Pertinent Past Medical History: DRUG PROBLEMS IN THE PAST, PID - Surgical History General Surgical History: Reports: None, Other (vag surgery for hematoma 30 min after delivery, 10/03/16) - Family History Family History: Reports: None - Social History Smoking Status: Former smoker Hx Substance Use: No Alcohol Screening: None - Immunizations Tetanus Shot up to Date: Yes Influenza Vaccine within 12 Months: No Pneumococcal Vaccine up to Date: No Physical Exam - Physical Exam Appearance: Well-appearing Eyes: JOELLE, EOMI, Conjunctiva clear ENT: Ears normal, Nose normal, Oropharynx normal Neck: Supple Respiratory: Airway patent Cardiovascular: RRR, Pulses normal, No rub, No murmur GI/: Soft, Nontender, No masses, Bowel sounds normal, No Organomegaly Musculoskeletal: Normal strength, ROM intact, No edema, No calf tenderness Skin: Warm, Dry, Normal color Neurological: Sensation intact Psychiatric: Affect appropriate, Mood appropriate Re-Evaluation - Re-Evaluation Time of Re-Evaluation: 01:25 Status: Improved Vital Signs Stable: Yes Pain Level: 0 Appearance: NAD Lungs: Clear Skin: Warm and Dry Neuro: Alert and Oriented X3 CV: RRR Critical Care Note - Critical Care Note Total Time (mins): 0 Course - Course Hematology/Chemistry: 03/31/18 23:15 03/31/18 23:15 Orders, Labs, Meds: Lab Review 03/31/18 03/31/18 03/31/18 23:15 23:15 23:15 WBC 10.75 H RBC 4.33 Hgb 8.8 L Hct 29.3 L MCV 67.7 L MCH 20.3 L MCHC 30.0 L RDW Coeff of Angel 16.2 H Plt Count 342 Immature Gran % (Auto) 0.8 Neut % (Auto) 64.3 Lymph % (Auto) 23.1 [place] % (Auto) 9.9 Eos % (Auto) 1.4 Baso % (Auto) 0.5 Immature Gran # (Auto) 0.1 Neut # (Auto) 6.9 Lymph # (Auto) 2.5 [place] # (Auto) 1.1 Eos # (Auto) 0.2 Baso # (Auto) 0.1 Hypochromasia 1+ Anisocytosis Not present Microcytosis 1+ PT 9.3 INR 0.93 Sodium 136 Potassium 3.9 Chloride 107 Carbon Dioxide 21 Anion Gap 11.9 BUN 8 Creatinine 0.72 Estimated GFR (MDRD) 103.00 BUN/Creatinine Ratio 11.11 Glucose 84 Calcium 8.9 Total Bilirubin 0.2 AST 11 L ALT 12 Alkaline Phosphatase 61 Total Protein 7.1 Albumin 2.8 L Globulin 4.3 Albumin/Globulin Ratio 0.65 Urine Color Urine Clarity Urine pH Ur Specific [place] Urine Protein Urine Glucose (UA) Urine Ketones Urine Blood Urine Nitrite Urine Bilirubin Urine Urobilinogen Ur Leukocyte Esterase Urine Microscopic WBC Ur Squamous Epith Cells Urine Bacteria 03/31/18 23:25 WBC RBC Hgb Hct MCV MCH MCHC RDW Coeff of Angel Plt Count Immature Gran % (Auto) Neut % (Auto) Lymph % (Auto) [place] % (Auto) Eos % (Auto) Baso % (Auto) Immature Gran # (Auto) Neut # (Auto) Lymph # (Auto) [place] # (Auto) Eos # (Auto) Baso # (Auto) Hypochromasia Anisocytosis Microcytosis PT INR Sodium Potassium Chloride Carbon Dioxide Anion Gap BUN Creatinine Estimated GFR (MDRD) BUN/Creatinine Ratio Glucose Calcium Total Bilirubin AST ALT Alkaline Phosphatase Total Protein Albumin Globulin Albumin/Globulin Ratio Urine Color Yellow Urine Clarity Cloudy Urine pH 7.0 Ur Specific [place] 1.025 Urine Protein Negative Urine Glucose (UA) Negative Urine Ketones Negative Urine Blood Negative Urine Nitrite Negative Urine Bilirubin Negative Urine Urobilinogen 0.2 Ur Leukocyte Esterase 3+ Urine Microscopic WBC 5-10 Ur Squamous Epith Cells 30-50 Urine Bacteria 1+ Orders Category Date Time Status ED IV/MEDIPORT/POWERPORT .ONCE EMERGENCY 03/31/18 22:58 Active Heart Tones [ED HEART RATE] .ONCE EMERGENCY 03/31/18 22:58 Active CBC W/ AUTO DIFF Stat LAB 03/31/18 23:15 Completed COMPREHENSIVE METABOLIC PANEL Stat LAB 03/31/18 23:15 Completed PT WITH INR Stat LAB 03/31/18 23:15 Completed RBC MORPHOLOGY Stat LAB 03/31/18 23:15 Completed URINALYSIS C & S IF INDICATED Stat LAB 03/31/18 23:25 Completed URINE CULTURE Stat LAB 03/31/18 23:40 Received 0.9 % Sodium Chloride [Saline Flush] MEDS 03/31/18 22:58 Ordered 1 syr IVF PRN PRN Acetaminophen [Tylenol] MEDS 04/01/18 00:07 Discontinued 1,000 mg PO ONCE STA Mag Hydrox/Al Hydrox/Simeth [Mylanta Susp] MEDS 04/01/18 00:07 Discontinued 30 ml PO ONCE STA Promethazine HCl [Phenergan 25 mg/ml Vial] MEDS 03/31/18 23:15 Discontinued 25 mg .ROUTE .STK-MED ONE Promethazine HCl [Phenergan 25 mg/ml Vial] 25 mg MEDS 03/31/18 22:58 Discontinued 0.9 % Sodium Chloride [Sodium Chloride] 50 ml IV ONCE Sodium Chloride 0.9% [Sodium Chloride] 1,000 ml MEDS 03/31/18 22:58 Discontinued IV BOLUS Medications Generic Name Dose Route Start Last Admin Trade Name Freq PRN Reason Stop Dose Admin Sodium Chloride 1 syr 03/31/18 22:58 03/31/18 23:25 Saline Flush IVF 1 syr PRN PRN Administration To flush IV Discontinued Medications Generic Name Dose Route Start Last Admin Trade Name Freq PRN Reason Stop Dose Admin Acetaminophen 1,000 mg 04/01/18 00:07 04/01/18 00:15 Tylenol PO 04/01/18 00:08 1,000 mg ONCE STA Administration Al Hydroxide/Mg Hydroxide 30 ml 04/01/18 00:07 04/01/18 00:16 Mylanta Susp PO 04/01/18 00:08 30 ml ONCE STA Administration Promethazine HCl 25 mg/ Sodium 51 mls @ 75 mls/hr 03/31/18 22:58 03/31/18 23: 25 Chloride IV 03/31/18 23:38 75 mls/hr ONCE STA Administration Sodium Chloride 1,000 mls @ 1,000 mls/hr 03/31/18 22:58 03/31/18 23:26 Sodium Chloride IV 03/31/18 23:57 1,000 mls/hr BOLUS STA Administration Vital Signs: Temp Pulse Resp BP Pulse Ox 03/31/18 22:58 98.9 F 92 H 20 127/65 99 Departure - Departure Time of Disposition: 01:26 Disposition: HOME SELF-CARE Discharge Problem: Hyperemesis gravidarum Instructions: Nausea and Vomiting in (ED) Condition: Good Pt referred to PMD for follow-up: Yes IPMP verified?: No Additional Instructions: f/u with your ob doc Allergies/Adverse Reactions: Allergies adhesive Adverse Reaction (Verified 03/31/18 23:49) bandaids cause rash codeine Adverse Reaction (Verified 03/18/18 14:43) Vomiting hydrocodone [From Lortab] Adverse Reaction (Verified 03/18/18 14:43) tramadol Adverse Reaction (Verified 03/18/18 14:43) Home Medications: Ambulatory Orders Ondansetron [Zofran Odt] 4 mg PO Q4H 01/29/18 Pantoprazole Sodium [Protonix] 40 mg PO BID 01/29/18 Promethazine HCl [Phenergan Tab] 25 mg PO Q6H 01/29/18 Albuterol Sulfate [Ventolin Hfa] 2 puff IH QID PRN 03/31/18 Disposition Discussed With: Patient, Family
== END 2018-04-01 01:30 | disposition home or self-care (01) ==
LOC: ED 22:57
DX: O21.0 Mild hyperemesis gravidarum (principal); Z3A.00 Weeks of gestation of pregnancy not specified
CPT/HCPCS: 36415; 80053; 81001; 85008; 85025; 85610; 87086; 96361; 96365; 99283

== ENCOUNTER 2018-05-18 13:46 | Emergency (ER) | payer OTHER ==
[2018-05-18 13:59] VITALS: BP 128/76; TEMP 98.5; BMI 33.9
[2018-05-18] MEDS ORDERED: SODIUM CHLORIDE 1,000 ML IV STA (14:32)
--- NOTE | 2018-05-18 14:32 | ED.PDOC ---
General ED Provider: Dr. TABATHA TURCIOS Chief Complaint: Hypertension Stated Complaint: Currently 32 weeks gestation with known hx of PIH and Pre eclampsia. Was hospitalized up until last week then sent home on bed rest. Today has constant nausea and burning indigestion. Patient states she has hyperemesis with her with preeclampsia. indicates she has been experiencing intermittent chest pain. Indicated that she spoke with her OB physician yesterday but does not want to go to [place] if she doesn't have to. patient also c/o headache but her oxycodone makes her sick Time Seen by Physician: 14:00 Mode of Arrival: Walk-In Information Source: Patient Exam Limitations: No limitations Primary Care Provider: KENNETH ALEGRIA Nursing and Triage Documentation Reviewed and Agree: Yes Does patient meet sepsis criteria?: No System Inflammatory Response Syndrome: Not Applicable Sepsis Protocol: For patient's 13 years and over: Temp is 96.8 and below OR 101 and greater Pulse >90 BPM Resp >20/minute Acutely Altered Mental Status Are patient's symptoms suggestive of a new infection, such as: -Pneumonia -Skin, Soft Tissue -Endocarditis -UTI -Bone, Joint Infection -Implantable Device -Acute Abdominal Infection -Wound Infection -Meningitis -Blood Stream Catheter Infection -Unknown CERAMIC COATER Complaint Exam - Labor/Delivery Complaint/Exam Expected Date of Delivery: 07/18/18 Review of Systems - Review Of Systems Constitutional: Reports: No symptoms Eyes: Reports: No symptoms Ears, Nose, Mouth, Throat: Reports: No symptoms Respiratory: Reports: No symptoms Cardiac: Reports: No symptoms GI: Reports: No symptoms, Nausea : Reports: No symptoms Musculoskeletal: Reports: No symptoms Skin: Reports: No symptoms Neurological: Reports: No symptoms, Headache Endocrine: Reports: No symptoms Hematologic/Lymphatic: Reports: No symptoms All Other Systems: Reviewed and Negative Past Medical History - Past Medical History Previously Healthy: Yes Endocrine: Reports: None Cardiovascular: Reports: None Respiratory: Reports: None Hematological: Reports: None Gastrointestinal: Reports: None Genitourinary: Reports: Unknown (chronic cervicitis states negative cultures no benefit antibiotics), Other (PMH of multiple positive urinalyses with negative cultures and negative urinalyses from cath'd urines.) Neuro/Psych: Reports: None, Bipolar Disorder, PTSD, Other (AFFECTIVE ADD MANIC DEPRESSION) Musculoskeletal: Reports: Back Pain Cancer: Reports: None Last Menstrual Period: 32 weeks Other Pertinent Past Medical History: DRUG PROBLEMS IN THE PAST, PID - Surgical History General Surgical History: Reports: None, Other (vag surgery for hematoma 30 min after delivery, 10/03/16) - Family History Family History: Reports: None - Social History Smoking Status: Former smoker Hx Substance Use: No Alcohol Screening: None - Immunizations Influenza Vaccine within 12 Months: No Pneumococcal Vaccine up to Date: No Physical Exam - Physical Exam Appearance: Well-appearing, No pain distress, Well-nourished Ill-appearing: None Pain Distress: None Eyes: JOELLE, EOMI, Conjunctiva clear ENT: Ears normal, Nose normal, Oropharynx normal Respiratory: Airway patent, Breath sounds clear, Breath sounds equal, Respirations nonlabored Cardiovascular: RRR, Pulses normal, No rub, No murmur GI/: Soft (Gravid uterus), Nontender, No masses, Bowel sounds normal Musculoskeletal: Normal strength, ROM intact, No edema, No calf tenderness Skin: Warm, Dry, Normal color Neurological: Sensation intact, Motor intact, Reflexes intact, Cranial nerves intact, Alert, Oriented Psychiatric: Affect appropriate, Mood appropriate Critical Care Note - Critical Care Note Total Time (mins): 0 Course - Course Hematology/Chemistry: 05/18/18 14:45 05/18/18 14:45 Orders, Labs, Meds: Lab Review 05/18/18 05/18/18 05/18/18 14:45 14:45 14:45 WBC 9.55 RBC 4.68 Hgb 10.5 L Hct 34.2 L MCV 73.1 L MCH 22.4 L MCHC 30.7 L RDW Coeff of Angel 25.2 H Plt Count 278 Immature Gran % (Auto) 1.2 Neut % (Auto) 70.6 Lymph % (Auto) 15.4 [place] % (Auto) 10.7 H Eos % (Auto) 1.5 Baso % (Auto) 0.6 Immature Gran # (Auto) 0.1 Neut # (Auto) 6.8 Lymph # (Auto) 1.5 [place] # (Auto) 1.0 Eos # (Auto) 0.1 Baso # (Auto) 0.1 Sodium 135 L Potassium 3.8 Chloride 106 Carbon Dioxide 21 Anion Gap 11.8 BUN 5 L Creatinine 0.53 L Estimated GFR (MDRD) 147.00 BUN/Creatinine Ratio 9.43 Glucose 78 Lactic Acid 8.5 Calcium 8.9 Magnesium 1.8 Total Bilirubin 0.2 AST 9 L ALT 9 L Alkaline Phosphatase 82 Total Protein 6.4 Albumin 2.6 L Globulin 3.8 Albumin/Globulin Ratio 0.68 Lipase 20 Urine Color Urine Clarity Urine pH Ur Specific [place] Urine Protein Urine Glucose (UA) Urine Ketones Urine Blood Urine Nitrite Urine Bilirubin Urine Urobilinogen Ur Leukocyte Esterase Urine Microscopic RBC Urine Microscopic WBC Ur Squamous Epith Cells Urine Bacteria 05/18/18 15:10 WBC RBC Hgb Hct MCV MCH MCHC RDW Coeff of Angel Plt Count Immature Gran % (Auto) Neut % (Auto) Lymph % (Auto) [place] % (Auto) Eos % (Auto) Baso % (Auto) Immature Gran # (Auto) Neut # (Auto) Lymph # (Auto) [place] # (Auto) Eos # (Auto) Baso # (Auto) Sodium Potassium Chloride Carbon Dioxide Anion Gap BUN Creatinine Estimated GFR (MDRD) BUN/Creatinine Ratio Glucose Lactic Acid Calcium Magnesium Total Bilirubin AST ALT Alkaline Phosphatase Total Protein Albumin Globulin Albumin/Globulin Ratio Lipase Urine Color Yellow Urine Clarity Slightly Urine pH 6.0 Ur Specific [place] >=1.030 Urine Protein 1+ Urine Glucose (UA) Negative Urine Ketones Negative Urine Blood Negative Urine Nitrite Negative Urine Bilirubin 1+ Urine Urobilinogen 0.2 Ur Leukocyte Esterase 1+ Urine Microscopic RBC 2-5 Urine Microscopic WBC 10-20 Ur Squamous Epith Cells 30-50 Urine Bacteria 3+ Orders Category Date Time Status EKG-(ED ONLY) Stat CARDIO 05/18/18 14:34 Completed IV [ED IV/MEDIPORT/POWERPORT] .ONCE EMERGENCY 05/18/18 14:32 Active CBC W/ AUTO DIFF Stat LAB 05/18/18 14:45 Completed CMP [COMPREHENSIVE METABOLIC PANEL] Stat LAB 05/18/18 14:45 Completed LACTIC ACID Stat LAB 05/18/18 14:45 Completed LIPASE Stat LAB 05/18/18 14:45 Completed MAGNESIUM Stat LAB 05/18/18 14:45 Completed UA [URINALYSIS C & S IF INDICATED] Stat LAB 05/18/18 15:10 Completed URINE CULTURE Stat LAB 05/18/18 15:10 Completed 0.9 % Sodium Chloride [Saline Flush] MEDS 05/18/18 14:32 Discontinued 1 syr IVF PRN PRN Ondansetron HCl/Pf [Zofran 4 mg/2 ml] MEDS 05/18/18 14:33 Discontinued 4 mg IVP ONCE STA Pantoprazole Sodium [Protonix IV] MEDS 05/18/18 14:33 Discontinued 40 mg IVP ONCE STA Sodium Chloride 0.9% [Sodium Chloride] 1,000 ml MEDS 05/18/18 14:32 Discontinued IV 125 mls/hr Medications Discontinued Medications Generic Name Dose Route Start Last Admin Trade Name Freq PRN Reason Stop Dose Admin Sodium Chloride 1,000 mls @ 125 mls/hr 05/18/18 14:32 05/18/18 14:57 Sodium Chloride IV 05/18/18 22:31 125 mls/hr .Q8H STA Administration Ondansetron HCl 4 mg 05/18/18 14:33 05/18/18 14:59 Zofran 4 Mg/2 Ml IVP 05/18/18 14:34 4 mg ONCE STA Administration Pantoprazole Sodium 40 mg 05/18/18 14:33 05/18/18 14:58 Protonix Iv IVP 05/18/18 14:34 40 mg ONCE STA Administration Sodium Chloride 1 syr 05/18/18 14:32 05/18/18 15:00 Saline Flush IVF 1 syr PRN PRN Administration To flush IV Vital Signs: Temp Pulse Resp BP Pulse Ox 05/18/18 13:46 98.5 F 97 H 16 128/76 98 Departure - Departure Time of Disposition: 20:00 Disposition: HOME SELF-CARE Discharge Problem: , Hyperemesis arising during Instructions: Hyperemesis Gravidarum (ED) Condition: Good Pt referred to PMD for follow-up: Yes (Dr Callahan next week) IPMP verified?: No Additional Instructions: Remain on current therapy -phenergan as needed. See Dr Callahan next week Go to [facility] [place] if develops contractions or decrease movements Diet as tolerated Allergies/Adverse Reactions: Allergies adhesive Adverse Reaction (Verified 05/27/18 04:44) bandaids cause rash codeine Adverse Reaction (Verified 05/27/18 04:44) Vomiting hydrocodone [From Lortab] Adverse Reaction (Verified 05/27/18 04:44) tramadol Adverse Reaction (Verified 05/27/18 04:44) Home Medications: Ambulatory Orders Ondansetron [Zofran Odt] 4 mg PO Q4H PRN 01/29/18 Pantoprazole Sodium [Protonix] 40 mg PO BID 01/29/18 Promethazine HCl [Phenergan Tab] 25 mg PO Q6H 01/29/18 Albuterol Sulfate [Ventolin Hfa] 2 puff IH QID PRN 03/31/18 Oxycodone HCl [Oxycodone] 5 mg PO Q4H PRN 05/18/18 Nitrofurantoin Macrocrystal [Nitrofurantoin] 100 mg PO BID #10 capsule 06/09/18 Disposition Discussed With: Patient, Other (Discussed with Dr Villalobos OB/ advised to have follow up next week as planned)
[2018-05-18] MEDS ORDERED: PROTONIX IV IVP STA (14:33)
[2018-05-18] MEDS ORDERED: ZOFRAN 4 MG/2 ML IVP STA (14:33)
== END 2018-05-18 20:20 | disposition home or self-care (01) ==
LOC: ED 13:46
DX: O21.0 Mild hyperemesis gravidarum (principal); Z3A.32 32 weeks gestation of pregnancy
CPT/HCPCS: 36415; 80053; 81001; 83605; 83690; 83735; 85025; 87086; 93005; 93010; 96361; 96375; 99284

== ENCOUNTER 2018-05-27 04:26 | Emergency (ER) ==
[2018-05-27 04:46] VITALS: BP 145/90; TEMP 97.8; BMI 35.2
[2018-05-27] MEDS ORDERED: TYLENOL PO STA (05:16)
[2018-05-27] MEDS ORDERED: PHENERGAN 25 MG/ML VIAL IM STA (05:16)
--- NOTE | 2018-05-27 06:22 | ED.PDOC ---
General ED Provider: Dr. TABATHA BRAVO-ER Chief Complaint: Headache Stated Complaint: my headache is not easing up Time Seen by Physician: 04:30 Mode of Arrival: Walk-In Information Source: Patient Exam Limitations: No limitations Primary Care Provider: KENNETH ALEGRIA Nursing and Triage Documentation Reviewed and Agree: Yes Does patient meet sepsis criteria?: No System Inflammatory Response Syndrome: Not Applicable Sepsis Protocol: For patient's 13 years and over: Temp is 96.8 and below OR 101 and greater Pulse >90 BPM Resp >20/minute Acutely Altered Mental Status Are patient's symptoms suggestive of a new infection, such as: -Pneumonia -Skin, Soft Tissue -Endocarditis -UTI -Bone, Joint Infection -Implantable Device -Acute Abdominal Infection -Wound Infection -Meningitis -Blood Stream Catheter Infection -Unknown Neurological Complaint Exam - Headache Complaint/Exam Onset: Sudden Duration: 3 hrs Symptoms Are: Still present Timing: Constant Worst Headache Ever: No Initial Severity: Mild Current Severity: Moderate Location: Diffuse Character: Reports: Dull, Throbbing Aggravating: Reports: Bright lights Alleviating: Reports: None Associated Signs and Symptoms: Reports: Nausea, Visual changes. Denies: Neck pain, Neck stiffness, Decreased LOC Related History: Reports: Similar episode Related Surgical History: Reports: None SAH Risk Factors: Reports: Hypertension Temporal Arteritis Risk Factors: Reports: Female, Normal Head CT Within Last 12 Months: No Fundoscopic Exam: Present: Normal Findings Papilledema Present: No Temporal Artery Tenderness: Present: None Sinus Tenderness: Present: None TMJ Tenderness: Present: None Glascow Coma Scale (see protocol): 15 Meningeal Signs Positive: No Pain on Passive Flexion-Positive Kernig's: No ROM Limited In: No Limitiations Focal Weakness: Present: None Focal Sensory Loss: Present: None Gait: Normal Nystagmus Present: No Gag Reflex Present: Yes [id number]: Normal Findings Romberg Test Positive: No Babinski Sign: Negative Right, Negative Left Heel to Toe Normal: No Differential Diagnoses: Migraine, Other Review of Systems - Review Of Systems Constitutional: Reports: No symptoms Eyes: Reports: No symptoms Ears, Nose, Mouth, Throat: Reports: No symptoms Respiratory: Reports: No symptoms Cardiac: Reports: No symptoms GI: Reports: No symptoms : Reports: No symptoms Musculoskeletal: Reports: No symptoms Skin: Reports: No symptoms Neurological: Reports: Headache Endocrine: Reports: No symptoms Hematologic/Lymphatic: Reports: No symptoms All Other Systems: Reviewed and Negative Past Medical History - Past Medical History Previously Healthy: Yes Endocrine: Reports: None Cardiovascular: Reports: None Respiratory: Reports: None Hematological: Reports: None Gastrointestinal: Reports: None Genitourinary: Reports: Unknown (chronic cervicitis states negative cultures no benefit antibiotics), Other (PMH of multiple positive urinalyses with negative cultures and negative urinalyses from cath'd urines.) Neuro/Psych: Reports: None, Bipolar Disorder, PTSD, Other (AFFECTIVE ADD MANIC DEPRESSION) Musculoskeletal: Reports: Back Pain Cancer: Reports: None Last Menstrual Period: SEP 2017 Other Pertinent Past Medical History: DRUG PROBLEMS IN THE PAST, PID - Surgical History General Surgical History: Reports: None, Other (vag surgery for hematoma 30 min after delivery, 10/03/16) - Family History Family History: Reports: None - Social History Smoking Status: Former smoker 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") Alcohol Screening: None - Immunizations Tetanus Shot up to Date: Yes Influenza Vaccine within 12 Months: No Pneumococcal Vaccine up to Date: No Physical Exam - Physical Exam Appearance: Well-appearing, No pain distress, Well-nourished Eyes: JOELLE, EOMI, Conjunctiva clear ENT: Ears normal, Nose normal, Oropharynx normal Neck: Supple Respiratory: Airway patent, Breath sounds clear, Breath sounds equal, Respirations nonlabored Cardiovascular: RRR, Pulses normal, No rub, No murmur GI/: Soft, Nontender, No masses, Bowel sounds normal, No Organomegaly Musculoskeletal: Normal strength, ROM intact, No edema, No calf tenderness Skin: Warm, Dry, Normal color Neurological: Sensation intact, Motor intact, Reflexes intact, Cranial nerves intact, Alert, Oriented Psychiatric: Affect appropriate, Mood appropriate Re-Evaluation - Re-Evaluation Time of Re-Evaluation: 06:22 Status: Unchanged Vital Signs Stable: Yes Pain Level: 6 Appearance: NAD Lungs: Clear Skin: Warm and Dry Neuro: Alert and Oriented X3 CV: RRR Physician Notification - Case Discussed Physician Notified: agustina lozano--for dr vidales--agreed to accept in transfer Time of Notification: 06:30 Critical Care Note - Critical Care Note Total Time (mins): 45 Course - Course Hematology/Chemistry: 05/27/18 05:50 05/27/18 05:50 Orders, Labs, Meds: Lab Review 05/27/18 05/27/18 05/27/18 05:50 05:50 05:50 WBC 10.16 RBC 4.73 Hgb 10.6 L Hct 34.8 L MCV 73.6 L MCH 22.4 L MCHC 30.5 L RDW Coeff of Angel 24.5 H Plt Count 309 Immature Gran % (Auto) 1.4 Neut % (Auto) 64.0 Lymph % (Auto) 20.4 Harmon % (Auto) 12.2 H Eos % (Auto) 1.5 Baso % (Auto) 0.5 Immature Gran # (Auto) 0.1 Neut # (Auto) 6.5 Lymph # (Auto) 2.1 Harmon # (Auto) 1.2 Eos # (Auto) 0.2 Baso # (Auto) 0.1 Plt Morphology Comment Poikilocytosis 1+ Anisocytosis 2+ PT 9.6 INR 0.96 Sodium 137 Potassium 4.0 Chloride 108 H Carbon Dioxide 20 L Anion Gap 13.0 BUN 6 L Creatinine 0.58 L Estimated GFR (MDRD) 133.00 BUN/Creatinine Ratio 10.34 Glucose 113 H Calcium 9.2 Total Bilirubin 0.2 AST 9 L ALT 9 L Alkaline Phosphatase 94 Total Protein 6.2 L Albumin 2.5 L Globulin 3.7 Albumin/Globulin Ratio 0.68 Urine Color Urine Clarity Urine pH Ur Specific Whick Urine Protein Urine Glucose (UA) Urine Ketones Urine Blood Urine Nitrite Urine Bilirubin Urine Urobilinogen Ur Leukocyte Esterase Urine Microscopic WBC Ur Squamous Epith Cells Amorphous Sediment Urine Bacteria 05/27/18 05:50 WBC RBC Hgb Hct MCV MCH MCHC RDW Coeff of Angel Plt Count Immature Gran % (Auto) Neut % (Auto) Lymph % (Auto) Harmon % (Auto) Eos % (Auto) Baso % (Auto) Immature Gran # (Auto) Neut # (Auto) Lymph # (Auto) [place]on # (Auto) Eos # (Auto) Baso # (Auto) Plt Morphology Comment Poikilocytosis Anisocytosis PT INR Sodium Potassium Chloride Carbon Dioxide Anion Gap BUN Creatinine Estimated GFR (MDRD) BUN/Creatinine Ratio Glucose Calcium Total Bilirubin AST ALT Alkaline Phosphatase Total Protein Albumin Globulin Albumin/Globulin Ratio Urine Color Yellow Urine Clarity Clear Urine pH 7.0 Ur Specific Whick 1.015 Urine Protein Negative Urine Glucose (UA) Negative Urine Ketones Negative Urine Blood Negative Urine Nitrite Negative Urine Bilirubin Negative Urine Urobilinogen 0.2 Ur Leukocyte Esterase 1+ Urine Microscopic WBC 0-2 Ur Squamous Epith Cells 0-2 Amorphous Sediment Trace Urine Bacteria 2+ Orders Category Date Time Status Ice Pack [ED APPLY ICE AFFECTED AREA] .ONCE EMERGENCY 05/27/18 05:22 Active CBC W/ AUTO DIFF Stat LAB 05/27/18 05:50 Completed COMPREHENSIVE METABOLIC PANEL Stat LAB 05/27/18 05:50 Completed PT WITH INR Stat LAB 05/27/18 05:50 Completed RBC MORPHOLOGY Stat LAB 05/27/18 05:50 Completed UA [URINALYSIS C & S IF INDICATED] Stat LAB 05/27/18 05:50 Completed URINE CULTURE Routine LAB 05/27/18 05:50 Received Acetaminophen [Tylenol] MEDS 05/27/18 05:16 Discontinued 650 mg PO ONCE STA Promethazine HCl [Phenergan 25 mg/ml Vial] MEDS 05/27/18 05:16 Discontinued 25 mg IM ONCE STA Medications Discontinued Medications Generic Name Dose Route Start Last Admin Trade Name Opal PRN Reason Stop Dose Admin Acetaminophen 650 mg 05/27/18 05:16 05/27/18 05:26 Tylenol PO 05/27/18 05:17 650 mg ONCE STA Administration Promethazine HCl 25 mg 05/27/18 05:16 05/27/18 05:26 Phenergan 25 Mg/Ml Vial IM 05/27/18 05:17 25 mg ONCE STA Administration Vital Signs: Temp Pulse Resp BP Pulse Ox 05/27/18 04:26 97.8 F 103 H 20 145/90 H 98 Departure - Departure Time of Disposition: 06:31 Disposition: TSF SHORT-TRM HOSP Discharge Problem: Pre-eclampsia Qualifiers: Trimester: third trimester Qualified Code(s): O14.93 - Unspecified pre- eclampsia, third trimester Instructions: Preeclampsia (ED) Condition: Stable Pt referred to PMD for follow-up: Yes IPMP verified?: No Allergies/Adverse Reactions: Allergies adhesive Adverse Reaction (Verified 05/27/18 04:44) bandaids cause rash codeine Adverse Reaction (Verified 05/27/18 04:44) Vomiting hydrocodone [From Lortab] Adverse Reaction (Verified 05/27/18 04:44) tramadol Adverse Reaction (Verified 05/27/18 04:44) Home Medications: Ambulatory Orders Ondansetron [Zofran Odt] 4 mg PO Q4H PRN 01/29/18 Pantoprazole Sodium [Protonix] 40 mg PO BID 01/29/18 Promethazine HCl [Phenergan Tab] 25 mg PO Q6H 01/29/18 Albuterol Sulfate [Ventolin Hfa] 2 puff IH QID PRN 03/31/18 Oxycodone HCl [Oxycodone] 5 mg PO Q4H PRN 05/18/18 Transfer Form Completed: Yes Disposition Discussed With: Patient
== END 2018-05-27 07:40 | disposition short-term general hospital (02) ==
LOC: ED 04:26
DX: O14.93 Unspecified pre-eclampsia, third trimester (principal)
CPT/HCPCS: 36415; 80053; 81001; 85008; 85025; 85610; 87086; 96372; 99285

== ENCOUNTER 2018-05-27 07:41 | Outpatient (CLI) ==
[2018-05-27 04:46] VITALS: BMI 35.2
== END 2018-05-27 08:57 | disposition short-term general hospital (02) ==
LOC: AMBL 07:41
PROVIDERS: ATTEND Emergency Medicine
DX: R51 Headache (principal); O14.93 Unspecified pre-eclampsia, third trimester; Z3A.32 32 weeks gestation of pregnancy

== ENCOUNTER 2018-06-09 18:42 | Emergency (ER) ==
[2018-06-09 18:54] VITALS: TEMP 98.3; BMI 37.0
[2018-06-09] MEDS ORDERED: LACTATED RINGERS 1,000 ML IV STA (19:07)
--- NOTE | 2018-06-09 19:16 | ED.PDOC ---
General ED Provider: Dr. CHARISSE ALMANZA Chief Complaint: Nausea/Vomiting Stated Complaint: Patient is a 22 year old 34 week who has been followed closely for Preeclamsia with a visit to the OBGYN clinic this week. She complaints of upper abdominal pain with nausea and vomiting for the past 24 hours. Time Seen by Physician: 20:21 Mode of Arrival: Walk-In Information Source: Patient Primary Care Provider: KENNETH ALEGRIA Nursing and Triage Documentation Reviewed and Agree: Yes Does patient meet sepsis criteria?: No System Inflammatory Response Syndrome: Pulse >90 BPM Sepsis Protocol: For patient's 13 years and over: Temp is 96.8 and below OR 101 and greater Pulse >90 BPM Resp >20/minute Acutely Altered Mental Status Are patient's symptoms suggestive of a new infection, such as: -Pneumonia -Skin, Soft Tissue -Endocarditis -UTI -Bone, Joint Infection -Implantable Device -Acute Abdominal Infection -Wound Infection -Meningitis -Blood Stream Catheter Infection -Unknown GI Complaint Exam - Abdominal Pain Complaint/Exam Onset: Gradual Duration: 1 day Symptoms Are: Still present Timing: Constant Initial Severity: Moderate Current Severity: Moderate Location of Pain: Epigastric Character: Reports: Cramping Aggravating: Reports: Eating Associated Signs and Symptoms: Reports: Nausea, Vomiting. Denies: Vaginal discharge Review of Systems - Review Of Systems Constitutional: Reports: No symptoms Eyes: Reports: No symptoms Ears, Nose, Mouth, Throat: Reports: No symptoms Respiratory: Reports: No symptoms Cardiac: Reports: No symptoms GI: Reports: Abdominal pain, Nausea, Poor appetite, Vomiting : Reports: No symptoms Musculoskeletal: Reports: No symptoms Skin: Reports: No symptoms Neurological: Reports: No symptoms Endocrine: Reports: No symptoms Hematologic/Lymphatic: Reports: No symptoms All Other Systems: Reviewed and Negative Past Medical History - Past Medical History Previously Healthy: Yes Endocrine: Reports: None Cardiovascular: Reports: None Respiratory: Reports: None Hematological: Reports: None Gastrointestinal: Reports: None Genitourinary: Reports: Unknown (chronic cervicitis states negative cultures no benefit antibiotics), Other (PMH of multiple positive urinalyses with negative cultures and negative urinalyses from cath'd urines.) Neuro/Psych: Reports: None, Bipolar Disorder, PTSD, Other (AFFECTIVE ADD MANIC DEPRESSION) Musculoskeletal: Reports: Back Pain Cancer: Reports: None Last Menstrual Period: 10/06/17 Other Pertinent Past Medical History: DRUG PROBLEMS IN THE PAST, PID - Surgical History General Surgical History: Reports: None, Other (vag surgery for hematoma 30 min after delivery, 10/03/16) - Family History Family History: Reports: None - Social History Smoking Status: Former smoker 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") Alcohol Screening: None - Immunizations Tetanus Shot up to Date: Yes Influenza Vaccine within 12 Months: No Pneumococcal Vaccine up to Date: No Physical Exam - Physical Exam Appearance: Ill-appearing, Well-nourished, Obese Ill-appearing: Mild Pain Distress: Mild Eyes: Conjunctiva clear ENT: Nose normal, Oropharynx normal Neck: Supple Respiratory: Airway patent, Breath sounds clear, Breath sounds equal, Respirations nonlabored Cardiovascular: Pulses normal, No rub, No murmur, Tachycardia GI/: Soft, Nontender, No masses, Bowel sounds normal, No Organomegaly Musculoskeletal: Normal strength, ROM intact, No edema, No calf tenderness Skin: Warm, Dry, Normal color Neurological: Sensation intact, Motor intact, Reflexes intact, Cranial nerves intact, Alert, Oriented Psychiatric: Affect appropriate, Mood appropriate Critical Care Note - Critical Care Note Total Time (mins): 30 Comments: FHT 153 felt better after IV fluids. Course - Course Hematology/Chemistry: 06/09/18 19:15 06/09/18 19:15 Orders, Labs, Meds: Lab Review 06/09/18 06/09/18 06/09/18 19:15 19:15 19:20 WBC 12.12 H RBC 4.77 Hgb 10.6 L Hct 34.7 L MCV 72.7 L MCH 22.2 L MCHC 30.5 L RDW Coeff of Angel 23.5 H Plt Count 292 Immature Gran % (Auto) 1.1 Neut % (Auto) 68.1 Lymph % (Auto) 19.0 [place] % (Auto) 10.3 H Eos % (Auto) 1.2 Baso % (Auto) 0.3 Immature Gran # (Auto) 0.1 Neut # (Auto) 8.3 H Lymph # (Auto) 2.3 [place] # (Auto) 1.3 Eos # (Auto) 0.1 Baso # (Auto) 0.0 Anisocytosis 2+ Sodium 136 Potassium 3.9 Chloride 107 Carbon Dioxide 19 L Anion Gap 13.9 BUN 6 L Creatinine 0.56 L Estimated GFR (MDRD) 138.00 BUN/Creatinine Ratio 10.71 Glucose 96 Calcium 9.0 Total Bilirubin 0.2 AST 10 L ALT 6 L Alkaline Phosphatase 110 H Total Protein 6.5 Albumin 2.6 L Globulin 3.9 Albumin/Globulin Ratio 0.67 Urine Color Yellow Urine Clarity Slightly Urine pH 6.5 Ur Specific [place] >=1.030 Urine Protein 1+ Urine Glucose (UA) Negative Urine Ketones Trace Urine Blood Negative Urine Nitrite Negative Urine Bilirubin Negative Urine Urobilinogen 0.2 Ur Leukocyte Esterase 1+ Urine Microscopic RBC 0-2 Urine Microscopic WBC 5-10 Ur Squamous Epith Cells 10-20 Calcium Oxalate Crystal Trace Urine Bacteria 3+ Orders Category Date Time Status ED IV/MEDIPORT/POWERPORT .ONCE EMERGENCY 06/09/18 19:07 Active CBC W/ AUTO DIFF Stat LAB 06/09/18 19:15 Completed COMPREHENSIVE METABOLIC PANEL Stat LAB 06/09/18 19:15 Completed RBC MORPHOLOGY Stat LAB 06/09/18 19:15 Completed URINALYSIS C & S IF INDICATED Stat LAB 06/09/18 19:20 Completed URINE CULTURE Stat LAB 06/09/18 19:20 Received 0.9 % Sodium Chloride [Saline Flush] MEDS 06/09/18 19:08 Discontinued 1 syr IVF PRN PRN Nitrofurantoin Monohyd/M-Cryst [Macrobid] MEDS 06/09/18 20:15 Discontinued 100 mg PO ONCE STA Promethazine HCl [Phenergan 25 mg/ml Vial] 25 mg MEDS 06/09/18 19:43 Discontinued 0.9 % Sodium Chloride [Sodium Chloride] 100 ml IV ONCE Ringers Lactated Solution [Lactated Ringers] 1,000 ml MEDS 06/09/18 19:07 Discontinued IV BOLUS Medications Discontinued Medications Generic Name Dose Route Start Last Admin Trade Name Freq PRN Reason Stop Dose Admin Lactated Ringer's 1,000 mls @ 1,000 mls/hr 06/09/18 19:07 06/09/18 19:22 Lactated Ringers IV 06/09/18 20:06 1,000 mls/hr BOLUS STA Administration Promethazine HCl 25 mg/ Sodium 101 mls @ 200 mls/hr 06/09/18 19:43 06/09/18 19:45 Chloride IV 06/09/18 20:13 200 mls/hr ONCE STA Administration Nitrofurantoin Macrocrystals 100 mg 06/09/18 20:15 06/09/18 20:22 Macrobid PO 06/09/18 20:16 100 mg ONCE STA Administration Sodium Chloride 1 syr 06/09/18 19:08 06/09/18 19:20 Saline Flush IVF 1 syr PRN PRN Administration To flush IV Vital Signs: Temp Pulse Resp BP Pulse Ox 06/09/18 20:17 112/60 06/09/18 18:43 98.3 F 114 H 18 151/79 H 99 Departure - Departure Time of Disposition: 20:39 Disposition: HOME SELF-CARE Discharge Problem: Third trimester at less than 36 weeks Urinary tract infection Qualifiers: Urinary tract infection type: acute cystitis Hematuria presence: without hematuria Qualified Code(s): N30.00 - Acute cystitis without hematuria Instructions: Urinary Tract Infection in (ED) Condition: Stable Pt referred to PMD for follow-up: Yes IPMP verified?: No Additional Instructions: Follow up with your OBGYN in the next 2 -3 days Take antibiotics as prescribed push fluids. Prescriptions: Nitrofurantoin Macrocrystal [Nitrofurantoin] 100 mg PO BID #10 capsule Allergies/Adverse Reactions: Allergies adhesive Adverse Reaction (Verified 05/27/18 04:44) bandaids cause rash codeine Adverse Reaction (Verified 05/27/18 04:44) Vomiting hydrocodone [From Lortab] Adverse Reaction (Verified 05/27/18 04:44) tramadol Adverse Reaction (Verified 05/27/18 04:44) Home Medications: Ambulatory Orders Ondansetron [Zofran Odt] 4 mg PO Q4H PRN 01/29/18 Pantoprazole Sodium [Protonix] 40 mg PO BID 01/29/18 Promethazine HCl [Phenergan Tab] 25 mg PO Q6H 01/29/18 Albuterol Sulfate [Ventolin Hfa] 2 puff IH QID PRN 03/31/18 Oxycodone HCl [Oxycodone] 5 mg PO Q4H PRN 05/18/18 Nitrofurantoin Macrocrystal [Nitrofurantoin] 100 mg PO BID #10 capsule 06/09/18 Disposition Discussed With: Patient, Family
[2018-06-09] MEDS ORDERED: PHENERGAN 25 MG/ML VIAL IV STA (19:32)
[2018-06-09] MEDS ORDERED: PHENERGAN 25 MG/ML VIAL 25 MG in SODIUM CHLORIDE 100 ML IV STA (19:43)
[2018-06-09] MEDS ORDERED: MACROBID PO STA (20:15)
[2018-06-09 20:18] VITALS: BP 112/60
== END 2018-06-09 21:09 | disposition home or self-care (01) ==
LOC: ED 18:42
DX: N30.00 Acute cystitis without hematuria (principal); Z3A.34 34 weeks gestation of pregnancy; R11.2 Nausea with vomiting, unspecified
CPT/HCPCS: 36415; 80053; 81001; 85008; 85025; 87086; 96361; 96365; 99283

== ENCOUNTER 2018-07-02 15:41 | Outpatient (CLI) ==
--- NOTE | 2018-07-02 16:40 | US ---
Exam: Alcantar-scale and color duplex Doppler ultrasonographic evaluation of the left lower extremity ve nous structures with spectral waveform analysis. Comparison: None available. Reason for exam: Left leg pain. FINDINGS: There is spontaneous flow with compression and augmentation in the left common femoral, gr eater saphenous, profunda, superficial femoral, popliteal, peroneal, posterior tibial, and anterior t ibial veins. Impression: No ultrasonographic evidence of thrombus is seen in the left lower extremity venous structures.
== END 2018-07-02 15:42 | disposition home or self-care (01) ==
LOC: RAD 15:41
PROVIDERS: ATTEND Nurse Practitioner Family
DX: M79.605 Pain in left leg (principal)

== ENCOUNTER 2018-07-07 19:30 | Emergency (ER) ==
[2018-07-07 19:37] VITALS: BP 138/86; TEMP 98.6; BMI 35.9
[2018-07-07] MEDS ORDERED: LACTATED RINGERS 1,000 ML IV STA (20:19)
[2018-07-07] MEDS ORDERED: REGLAN IVP STA (20:21)
--- NOTE | 2018-07-07 21:34 | ED.PDOC ---
General ED Provider: Dr. CHARISSE ALMANZA Chief Complaint: Headache Stated Complaint: Patient ia 22 year old who comes to the ER with Headache and vomiting x 5 today. Feels weak. She is 9 days post . Time Seen by Physician: 20:00 Mode of Arrival: Walk-In Information Source: Patient Primary Care Provider: KENNETH ALEGRIA Nursing and Triage Documentation Reviewed and Agree: Yes Does patient meet sepsis criteria?: No System Inflammatory Response Syndrome: Not Applicable Sepsis Protocol: For patient's 13 years and over: Temp is 96.8 and below OR 101 and greater Pulse >90 BPM Resp >20/minute Acutely Altered Mental Status Are patient's symptoms suggestive of a new infection, such as: -Pneumonia -Skin, Soft Tissue -Endocarditis -UTI -Bone, Joint Infection -Implantable Device -Acute Abdominal Infection -Wound Infection -Meningitis -Blood Stream Catheter Infection -Unknown Review of Systems - Review Of Systems Constitutional: Reports: Weakness, Loss of appetite Eyes: Reports: No symptoms Ears, Nose, Mouth, Throat: Reports: No symptoms Respiratory: Reports: No symptoms Cardiac: Reports: No symptoms GI: Reports: Nausea, Poor appetite, Vomiting : Reports: No symptoms Musculoskeletal: Reports: No symptoms Skin: Reports: No symptoms Neurological: Reports: Anxiety, Headache Endocrine: Reports: No symptoms Hematologic/Lymphatic: Reports: No symptoms All Other Systems: Reviewed and Negative Past Medical History - Past Medical History Previously Healthy: Yes Endocrine: Reports: None Cardiovascular: Reports: None Respiratory: Reports: None Hematological: Reports: None Gastrointestinal: Reports: None Genitourinary: Reports: Unknown (chronic cervicitis states negative cultures no benefit antibiotics), Other (PMH of multiple positive urinalyses with negative cultures and negative urinalyses from cath'd urines.) Neuro/Psych: Reports: None, Bipolar Disorder, PTSD, Other (AFFECTIVE ADD MANIC DEPRESSION) Musculoskeletal: Reports: Back Pain Cancer: Reports: None Last Menstrual Period: POST 9 DAYS, IS STILL BLEEDING Other Pertinent Past Medical History: DRUG PROBLEMS IN THE PAST, PID - Surgical History General Surgical History: Reports: None, Other (vag surgery for hematoma 30 min after delivery, 10/03/16) - Family History Family History: Reports: None - Social History Smoking Status: Former smoker 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") Alcohol Screening: None - Immunizations Tetanus Shot up to Date: Yes Influenza Vaccine within 12 Months: No Pneumococcal Vaccine up to Date: No Physical Exam - Physical Exam Appearance: Ill-appearing, Obese Ill-appearing: Moderate Pain Distress: Mild Eyes: JOELLE, EOMI, Conjunctiva clear Neck: Supple Respiratory: Airway patent, Breath sounds clear, Breath sounds equal, Respirations nonlabored Cardiovascular: Pulses normal, No rub, Tachycardia GI/: Soft, Nontender, No masses, Bowel sounds normal, No Organomegaly Musculoskeletal: Normal strength, ROM intact, No edema, No calf tenderness Skin: Warm, Dry, Normal color Neurological: Sensation intact, Motor intact, Alert, Oriented Psychiatric: Anxious Critical Care Note - Critical Care Note Total Time (mins): 0 Course - Course Hematology/Chemistry: 07/07/18 20:49 07/07/18 20:49 Orders, Labs, Meds: Lab Review 07/07/18 09 20:49 20:49 WBC 9.91 RBC 5.94 H Hgb 12.9 Hct 44.0 MCV 74.1 L MCH 21.7 L MCHC 29.3 L RDW Coeff of Angel 22.3 H Plt Count 424 Anisocytosis 2+ Sodium 139.7 Potassium 3.88 Chloride 106.1 Carbon Dioxide 25.3 Anion Gap 12.18 BUN 11.5 Creatinine 0.65 Estimated GFR (MDRD) 116.00 BUN/Creatinine Ratio 17.69 Glucose 77.5 Calcium 9.34 Total Bilirubin 0.25 AST 21.6 ALT 30.5 Alkaline Phosphatase 125.7 Total Protein 7.98 Albumin 3.93 Globulin 4.05 Albumin/Globulin Ratio 0.97 Amylase 70.6 Lipase 64.9 Orders Category Date Time Status ED IV/MEDIPORT/POWERPORT .ONCE EMERGENCY 07/07/18 20:19 Active AMYLASE Stat LAB 07/07/18 20:49 Completed CBC W/ AUTO DIFF Stat LAB 07/07/18 20:49 Completed COMPREHENSIVE METABOLIC PANEL Stat LAB 07/07/18 20:49 Completed LIPASE Stat LAB 07/07/18 20:49 Completed RBC MORPHOLOGY Stat LAB 07/07/18 20:49 Completed 0.9 % Sodium Chloride [Saline Flush] MEDS 07/07/18 20:21 Discontinued 1 syr IVF PRN PRN Metoclopramide HCl [Reglan] MEDS 07/07/18 20:21 Discontinued 10 mg IVP ONCE STA Ringers Lactated Solution [Lactated Ringers] 1,000 ml MEDS 07/07/18 20:19 Discontinued IV BOLUS Medications Discontinued Medications Generic Name Dose Route Start Last Admin Trade Name Freq PRN Reason Stop Dose Admin Lactated Ringer's 1,000 mls @ 1,000 mls/hr 07/07/18 20:19 07/07/18 20:39 Lactated Ringers IV 07/07/18 21:18 1,000 mls/hr BOLUS STA Administration Metoclopramide HCl 10 mg 07/07/18 20:21 07/07/18 20:41 Reglan IVP 07/07/18 20:22 10 mg ONCE STA Administration Sodium Chloride 1 syr 07/07/18 20:21 07/07/18 20:39 Saline Flush IVF 1 syr PRN PRN Administration To flush IV Vital Signs: Temp Pulse Resp BP Pulse Ox 07/07/18 19:30 98.6 F 104 H 20 138/86 98 Departure - Departure Time of Disposition: 21:33 Disposition: HOME SELF-CARE Discharge Problem: Headache Nausea & vomiting Qualifiers: Vomiting type: unspecified Vomiting Intractability: non-intractable Qualified Code(s): R11.2 - Nausea with vomiting, unspecified Instructions: Acute Headache (ED), Acute Nausea and Vomiting (ED) Condition: Stable Pt referred to PMD for follow-up: Yes IPMP verified?: No Additional Instructions: Hydrate Take Reglan as needed for nasuea Follow up with PCP in 3 days. Prescriptions: Metoclopramide HCl [Reglan] 10 mg PO TID PRN #15 tablet PRN Reason: Nausea Allergies/Adverse Reactions: Allergies adhesive Adverse Reaction (Verified 07/07/18 19:38) Rash bandaids cause rash codeine Adverse Reaction (Verified 07/07/18 19:38) Vomiting hydrocodone [From Lortab] Adverse Reaction (Verified 07/07/18 19:38) Vomiting tramadol Adverse Reaction (Verified 07/07/18 19:38) Rash/CANT BREATHE Home Medications: Ambulatory Orders Promethazine HCl [Phenergan Tab] 25 mg PO Q6H 01/29/18 Albuterol Sulfate [Ventolin Hfa] 2 puff IH QID PRN 03/31/18 Oxycodone HCl [Oxycodone] 10 mg PO Q4H PRN 05/18/18 Alprazolam [Xanax] 0.5 mg PO QID PRN 07/07/18 Metoclopramide HCl [Reglan] 10 mg PO TID PRN #15 tablet 07/07/18 Quetiapine Fumarate [Seroquel] 12.5 mg PO BEDTIME 07/07/18 Disposition Discussed With: Patient, Family
== END 2018-07-07 21:46 | disposition home or self-care (01) ==
LOC: ED 19:30
DX: R51 Headache (principal); R11.2 Nausea with vomiting, unspecified; R53.1 Weakness; Z98.890 Other specified postprocedural states
CPT/HCPCS: 36415; 80053; 82150; 83690; 85008; 85025; 96361; 96374; 99283

== ENCOUNTER 2018-07-21 14:01 | Outpatient (CLI) | END 2018-07-21 14:20 | disposition short-term general hospital (02) | LOC: AMBL 14:01 | PROVIDERS: ATTEND Internal Medicine | DX: G43.909 Migraine, unspecified, not intractable, without status migrainosus (principal); Z91.14 Patient's other noncompliance with medication regimen ==

== ENCOUNTER 2018-10-13 22:24 | Emergency (ER) ==
[2018-10-13 22:35] VITALS: BP 138/85; TEMP 98.3; BMI 33.3
[2018-10-13] MEDS ORDERED: PEPCID PO STA (23:31)
--- NOTE | 2018-10-13 23:34 | ED.PDOC ---
General ED Provider: Dr. TABATHA BRAVO-ER Chief Complaint: Nausea/Vomiting Stated Complaint: my test is positive and i have bad reflux Time Seen by Physician: 23:32 Mode of Arrival: Walk-In Information Source: Patient Exam Limitations: No limitations Primary Care Provider: KENNETH ALEGRIA Nursing and Triage Documentation Reviewed and Agree: Yes Does patient meet sepsis criteria?: No System Inflammatory Response Syndrome: Not Applicable Sepsis Protocol: For patient's 13 years and over: Temp is 96.8 and below OR 101 and greater Pulse >90 BPM Resp >20/minute Acutely Altered Mental Status Are patient's symptoms suggestive of a new infection, such as: -Pneumonia -Skin, Soft Tissue -Endocarditis -UTI -Bone, Joint Infection -Implantable Device -Acute Abdominal Infection -Wound Infection -Meningitis -Blood Stream Catheter Infection -Unknown RIVET [employer]KER Complaint Exam - Labor/Delivery Complaint/Exam Onset/Duration: no labor Symptoms Are: Resolved Contraction Frequency: no contractions Vaginal Bleeding: None Patient Rh Status: Unknown Differential Diagnoses: Other Review of Systems - Review Of Systems Constitutional: Reports: No symptoms Eyes: Reports: No symptoms Ears, Nose, Mouth, Throat: Reports: No symptoms Respiratory: Reports: No symptoms Cardiac: Reports: No symptoms GI: Reports: Nausea : Reports: No symptoms Musculoskeletal: Reports: No symptoms Skin: Reports: No symptoms Neurological: Reports: No symptoms Endocrine: Reports: No symptoms Hematologic/Lymphatic: Reports: No symptoms All Other Systems: Reviewed and Negative Past Medical History - Past Medical History Previously Healthy: Yes Endocrine: Reports: None Cardiovascular: Reports: None Respiratory: Reports: None Hematological: Reports: None Gastrointestinal: Reports: None Genitourinary: Reports: Unknown (chronic cervicitis states negative cultures no benefit antibiotics), Other (PMH of multiple positive urinalyses with negative cultures and negative urinalyses from cath'd urines.) Neuro/Psych: Reports: None, Bipolar Disorder, PTSD, Other (AFFECTIVE ADD MANIC DEPRESSION) Musculoskeletal: Reports: Back Pain Cancer: Reports: None Last Menstrual Period: 09/11/18 Other Pertinent Past Medical History: DRUG PROBLEMS IN THE PAST, PID - Surgical History General Surgical History: Reports: None, Other (vag surgery for hematoma 30 min after delivery, 10/03/16) - Family History Family History: Reports: None - Social History Smoking Status: Former smoker 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") Alcohol Screening: None - Immunizations Tetanus Shot up to Date: Yes Influenza Vaccine within 12 Months: No Pneumococcal Vaccine up to Date: No Physical Exam - Physical Exam Appearance: Well-appearing, No pain distress, Well-nourished Eyes: JOELLE ENT: Ears normal, Nose normal, Oropharynx normal Neck: Supple Respiratory: Airway patent, Breath sounds clear, Breath sounds equal, Respirations nonlabored Cardiovascular: RRR GI/: Soft Musculoskeletal: Normal strength Skin: Warm, Dry, Normal color Neurological: Sensation intact, Motor intact, Reflexes intact, Cranial nerves intact, Alert, Oriented Psychiatric: Affect appropriate Critical Care Note - Critical Care Note Total Time (mins): 0 Course - Course Hematology/Chemistry: 10/13/18 23:00 10/13/18 23:00 Orders, Labs, Meds: Lab Review 10/13/18 10/13/18 10/13/18 23:00 23:00 23:00 WBC 7.73 RBC 5.05 Hgb 12.1 Hct 39.0 MCV 77.2 L MCH 24.0 L MCHC 31.0 L RDW Coeff of Angel 16.6 H Plt Count 387 Immature Gran % (Auto) 0.3 Neut % (Auto) 54.5 Lymph % (Auto) 28.3 [place] % (Auto) 10.7 H Eos % (Auto) 5.4 Baso % (Auto) 0.8 Immature Gran # (Auto) 0.0 Neut # (Auto) 4.2 Lymph # (Auto) 2.2 [place] # (Auto) 0.8 Eos # (Auto) 0.4 Baso # (Auto) 0.1 Sodium 137.5 Potassium 3.92 Chloride 103.6 Carbon Dioxide 27.0 Anion Gap 10.82 BUN 14.4 Creatinine 0.64 Estimated GFR (MDRD) 117.00 BUN/Creatinine Ratio 22.50 Glucose 79.7 Calcium 9.35 Total Bilirubin 0.14 L AST 20.9 ALT 31.2 Alkaline Phosphatase 81.1 Total Protein 7.79 Albumin 4.34 Globulin 3.45 Albumin/Globulin Ratio 1.25 Amylase 68.7 Lipase 115.9 Serum , Qual Positive Urine Color Urine Clarity Urine pH Ur Specific [place] Urine Protein Urine Glucose (UA) Urine Ketones Urine Blood Urine Nitrite Urine Bilirubin Urine Urobilinogen Ur Leukocyte Esterase Urine Microscopic RBC Urine Microscopic WBC Ur Squamous Epith Cells Urine Bacteria 10/13/18 23:00 WBC RBC Hgb Hct MCV MCH MCHC RDW Coeff of Angel Plt Count Immature Gran % (Auto) Neut % (Auto) Lymph % (Auto) [place] % (Auto) Eos % (Auto) Baso % (Auto) Immature Gran # (Auto) Neut # (Auto) Lymph # (Auto) [place] # (Auto) Eos # (Auto) Baso # (Auto) Sodium Potassium Chloride Carbon Dioxide Anion Gap BUN Creatinine Estimated GFR (MDRD) BUN/Creatinine Ratio Glucose Calcium Total Bilirubin AST ALT Alkaline Phosphatase Total Protein Albumin Globulin Albumin/Globulin Ratio Amylase Lipase Serum , Qual Urine Color Yellow Urine Clarity Slightly Urine pH 7.0 Ur Specific [place] 1.020 Urine Protein 1+ Urine Glucose (UA) Negative Urine Ketones Negative Urine Blood Trace-intact Urine Nitrite Negative Urine Bilirubin Negative Urine Urobilinogen 1.0 Ur Leukocyte Esterase 1+ Urine Microscopic RBC 0-2 Urine Microscopic WBC 2-5 Ur Squamous Epith Cells 5-10 Urine Bacteria Trace Orders Category Date Time Status AMYLASE Stat LAB 10/13/18 23:00 Completed CBC W/ AUTO DIFF Stat LAB 10/13/18 23:00 Completed COMPREHENSIVE METABOLIC PANEL Stat LAB 10/13/18 23:00 Completed LIPASE Stat LAB 10/13/18 23:00 Completed SERUM Stat LAB 10/13/18 23:00 Completed URINALYSIS C & S IF INDICATED Stat LAB 10/13/18 23:00 Completed Famotidine [Pepcid] MEDS 10/13/18 23:31 Discontinued 20 mg PO ONCE STA Medications Discontinued Medications Generic Name Dose Route Start Last Admin Trade Name Freq PRN Reason Stop Dose Admin Famotidine 20 mg 10/13/18 23:31 Pepcid PO 10/13/18 23:32 ONCE STA Vital Signs: Temp Pulse Resp BP Pulse Ox 10/13/18 22:27 98.3 F 91 H 20 138/85 97 Departure - Departure Time of Disposition: 23:34 Disposition: DISCH/TSF TO A [facility] Discharge Problem: test-positive GERD (gastroesophageal reflux disease) Qualifiers: Esophagitis presence: esophagitis presence not specified Qualified Code(s): K21.9 - Gastro-esophageal reflux disease without esophagitis Instructions: (ED) Condition: Good Pt referred to PMD for follow-up: Yes IPMP verified?: No Additional Instructions: talk to your ob doctor tomorrow Allergies/Adverse Reactions: Allergies adhesive Adverse Reaction (Verified 07/07/18 19:38) Rash bandaids cause rash codeine Adverse Reaction (Verified 07/07/18 19:38) Vomiting hydrocodone [From Lortab] Adverse Reaction (Verified 07/07/18 19:38) Vomiting tramadol Adverse Reaction (Verified 07/07/18 19:38) Rash/CANT BREATHE Home Medications: Ambulatory Orders Promethazine HCl [Phenergan Tab] 25 mg PO Q6H 01/29/18 Albuterol Sulfate [Ventolin Hfa] 2 puff IH QID PRN 03/31/18 Alprazolam [Xanax] 0.5 mg PO QID PRN 07/07/18 Disposition Discussed With: Patient
== END 2018-10-13 23:55 ==
LOC: ED 22:24
DX: K21.9 Gastro-esophageal reflux disease without esophagitis (principal); Z33.1 Pregnant state, incidental
CPT/HCPCS: 36415; 80053; 81001; 82150; 83690; 84703; 85025; 99283

== ENCOUNTER 2018-10-25 22:54 | Emergency (ER) ==
[2018-10-25 23:08] VITALS: BP 121/74; TEMP 99.1; BMI 33.4
[2018-10-25] MEDS ORDERED: SOLU-MEDROL 125 MG IVP STA (23:26)
[2018-10-25] MEDS ORDERED: DEXTROSE 5%-NS IV SOLUTION 1,000 ML IV STA (23:26)
--- NOTE | 2018-10-25 23:26 | ED.PDOC ---
General ED Provider: Dr. TABATHA LOVE MD Chief Complaint: Nausea/Vomiting Stated Complaint: lot of vomiting and diarrhea Time Seen by Physician: 11:15 Mode of Arrival: Walk-In Information Source: Patient Exam Limitations: No limitations Primary Care Provider: KENNETH ALEGRIA Nursing and Triage Documentation Reviewed and Agree: Yes Does patient meet sepsis criteria?: No If yes, has appropriate treatment been initiated?: Yes System Inflammatory Response Syndrome: Not Applicable Sepsis Protocol: For patient's 13 years and over: Temp is 96.8 and below OR 101 and greater Pulse >90 BPM Resp >20/minute Acutely Altered Mental Status Are patient's symptoms suggestive of a new infection, such as: -Pneumonia -Skin, Soft Tissue -Endocarditis -UTI -Bone, Joint Infection -Implantable Device -Acute Abdominal Infection -Wound Infection -Meningitis -Blood Stream Catheter Infection -Unknown Review of Systems - Review Of Systems Constitutional: Reports: Weakness (lightheaDEDNESS) Eyes: Reports: No symptoms Ears, Nose, Mouth, Throat: Reports: No symptoms Respiratory: Reports: No symptoms Cardiac: Reports: No symptoms GI: Reports: Abdominal pain : Reports: No symptoms Musculoskeletal: Reports: No symptoms Skin: Reports: No symptoms Neurological: Reports: No symptoms Endocrine: Reports: No symptoms Hematologic/Lymphatic: Reports: No symptoms All Other Systems: Reviewed and Negative Past Medical History - Past Medical History Previously Healthy: Yes Endocrine: Reports: None Cardiovascular: Reports: None Respiratory: Reports: None Hematological: Reports: None Gastrointestinal: Reports: None Genitourinary: Reports: Unknown (chronic cervicitis states negative cultures no benefit antibiotics), Other (PMH of multiple positive urinalyses with negative cultures and negative urinalyses from cath'd urines.) Neuro/Psych: Reports: None, Bipolar Disorder, PTSD, Other (AFFECTIVE ADD MANIC DEPRESSION) Musculoskeletal: Reports: Back Pain Cancer: Reports: None Last Menstrual Period: unsure - no menses since of daughter 4 months ago Other Pertinent Past Medical History: DRUG PROBLEMS IN THE PAST, PID - Surgical History General Surgical History: Reports: None, Other (vag surgery for hematoma 30 min after delivery, 10/03/16) - Family History Family History: Reports: None - Social History Smoking Status: Former smoker 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") Alcohol Screening: None - Immunizations Tetanus Shot up to Date: Yes Influenza Vaccine within 12 Months: No Pneumococcal Vaccine up to Date: No Physical Exam - Physical Exam Appearance: Ill-appearing, Obese Ill-appearing: Mild Pain Distress: None Eyes: JOELLE, EOMI, Conjunctiva clear ENT: Ears normal Neck: Supple Respiratory: Airway patent, Breath sounds clear, Breath sounds equal, Respirations nonlabored Cardiovascular: RRR, Pulses normal, No rub, No murmur GI/: Soft, Tender (MILDLY GENERALIZED) Musculoskeletal: Normal strength, ROM intact, No edema, No calf tenderness Skin: Warm, Dry, Normal color Neurological: Sensation intact, Motor intact, Reflexes intact, Cranial nerves intact, Alert, Oriented Psychiatric: Affect appropriate, Mood appropriate Critical Care Note - Critical Care Note Total Time (mins): 0 Course - Course Hematology/Chemistry: 10/25/18 23:58 10/25/18 23:58 Orders, Labs, Meds: Lab Review 10/25/18 10/25/18 23:58 23:58 WBC 5.71 RBC 5.32 Hgb 12.6 Hct 40.8 MCV 76.7 L MCH 23.7 L MCHC 30.9 L RDW Coeff of Angel 15.6 H Plt Count 350 Immature Gran % (Auto) 0.4 Neut % (Auto) 61.2 Lymph % (Auto) 24.0 [place] % (Auto) 10.5 H Eos % (Auto) 3.5 Baso % (Auto) 0.4 Immature Gran # (Auto) 0.0 Neut # (Auto) 3.5 Lymph # (Auto) 1.4 [place] # (Auto) 0.6 Eos # (Auto) 0.2 Baso # (Auto) 0.0 Sodium 135.8 Potassium 3.76 Chloride 105.9 Carbon Dioxide 21.0 L Anion Gap 12.66 BUN 6.0 L Creatinine 0.56 L Estimated GFR (MDRD) 137.00 BUN/Creatinine Ratio 10.71 Glucose 101.3 Calcium 9.22 Orders Category Date Time Status IV [ED IV/MEDIPORT/POWERPORT] .ONCE EMERGENCY 10/25/18 23:27 Active BMP [BASIC METABOLIC PANEL] Stat LAB 10/25/18 23:58 Completed CBC W/ AUTO DIFF Stat LAB 10/25/18 23:58 Completed 0.9 % Sodium Chloride [Saline Flush] MEDS 10/25/18 23:27 Ordered 1 syr IVF PRN PRN Dextrose 5 % and 0.9 % NaCl [Dextrose 5%-Ns IV Solution MEDS 10/25/18 23:26 Discontinued ] 1,000 ml IV BOLUS Methylprednisolone Sod Succ/Pf [Solu-Medrol 125 mg] MEDS 10/25/18 23:26 Discontinued 125 mg IVP ONCE STA Ondansetron HCl/Pf [Zofran 4 mg/2 ml] MEDS 10/25/18 23:27 Discontinued 4 mg IVP ONCE STA Medications Generic Name Dose Route Start Last Admin Trade Name Freq PRN Reason Stop Dose Admin Sodium Chloride 1 syr 10/25/18 23:27 10/25/18 23:51 Saline Flush IVF 1 syr PRN PRN Administration To flush IV Discontinued Medications Generic Name Dose Route Start Last Admin Trade Name Freq PRN Reason Stop Dose Admin Dextrose/Sodium Chloride 1,000 mls @ 1,000 mls/hr 10/25/18 23:26 10/25/18 23: 51 Dextrose 5%-Ns Iv Solution IV 10/26/18 00:25 1,000 mls/hr BOLUS STA Administration Methylprednisolone Sodium Succinate 125 mg 10/25/18 23:26 10/25/18 23:50 Solu-Medrol 125 Mg IVP 10/25/18 23:27 125 mg ONCE STA Administration Ondansetron HCl 4 mg 10/25/18 23:27 10/25/18 23:50 Zofran 4 Mg/2 Ml IVP 10/25/18 23:28 4 mg ONCE STA Administration Vital Signs: Temp Pulse Resp BP Pulse Ox 10/25/18 22:55 99.1 F 99 H 20 121/74 98 Departure - Departure Time of Disposition: 01:15 Disposition: HOME SELF-CARE Discharge Problem: Viral gastroenteritis Condition: Good Pt referred to PMD for follow-up: Yes IPMP verified?: No Prescriptions: Prednisone 20 mg PO DAILYWM 3 Days #3 tablet NS Allergies/Adverse Reactions: Allergies adhesive Adverse Reaction (Verified 10/25/18 23:09) Rash bandaids cause rash codeine Adverse Reaction (Verified 10/25/18 23:09) Vomiting hydrocodone [From Lortab] Adverse Reaction (Verified 10/25/18 23:09) Vomiting tramadol Adverse Reaction (Verified 10/25/18 23:09) Rash/CANT BREATHE Home Medications: Ambulatory Orders Promethazine HCl [Phenergan Tab] 25 mg PO Q6H 01/29/18 Albuterol Sulfate [Ventolin Hfa] 2 puff IH QID PRN 03/31/18 Prednisone 20 mg PO DAILYWM 3 Days #3 tablet NS 10/26/18
[2018-10-25] MEDS ORDERED: ZOFRAN 4 MG/2 ML IVP STA (23:27)
[2018-10-26] MEDS ORDERED: GI COCKTAIL PO STA (01:11)
[2018-10-26] MEDS ORDERED: IMODIUM A-D PO STA (01:28)
[2018-10-26] MEDS ORDERED: DEXTROSE 5%-NS IV SOLUTION 1,000 ML IV STA (02:11)
== END 2018-10-26 02:19 | disposition home or self-care (01) ==
LOC: ED 22:54
DX: A08.4 Viral intestinal infection, unspecified (principal)
CPT/HCPCS: 36415; 80048; 85025; 96361; 96374; 96375; 99284